=== PATIENT | male | born 1970 | race Caucasian/White ===

== ENCOUNTER 2021-12-06 12:41 | Emergency (ER) | payer MEDICAID, SELFPAY ==
[2021-12-06 12:42] VITALS: BP 136/100; PULSE 137; RESP 22; TEMP 37.2; O2SAT 96; BMI 34.4
--- NOTE | 2021-12-06 13:05 | ECG_ITS ---
APPROVED REPORT Exam: Resting ECG HR:126 bpm ECG Measurements Heart Rate [address] 161 P 25 QRSd 89 QRS 56 QT 297 T 48 QTc 372 Conclusion SINUS TACHYCARDIA ABNORMAL RHYTHM ECG UNCONFIRMED REPORT Electronically signed by : Berny Reyna MD 12/07/2021 15:03:33
--- NOTE | 2021-12-06 13:07 | PC.NURSE ---
ED MD at bedside
[2021-12-06 13:09] VITALS: BP 153/95; PULSE 134; RESP 16; O2SAT 98
--- NOTE | 2021-12-06 13:10 | XR_ITS ---
FINAL REPORT CLINICAL HISTORY: cough, elevated heart rate FINDINGS: A single portable view of the chest was obtained. The heart size and pulmonary vascularity are within normal limits. The mediastinum is within normal limits. No acute pulmonary abnormality is identified. The bony thorax is intact. IMPRESSION: No active cardiopulmonary disease. Reviewed, Interpreted and Dictated by Magdiel Pulido III, MD Transcribed by Cara Barba Authenticated by Magdiel Pulido III, MD on 12/06/2021 02:05:51 PM [facility]
[2021-12-06 13:23] LABS: Basophils # 0.1 K/mm3 (0-0.2); Eosinophils # 0.2 K/mm3 (0.0-0.4)
[2021-12-06 13:30] VITALS: BP 138/96; PULSE 118; RESP 20; O2SAT 95
[2021-12-06 13:33] LABS: Chloride 99 mmol/L (98-107); Potassium 4.4 mmoL/L (3.5-5.1); Sodium 134 mmol/L (136-145)
[2021-12-06 13:35] LABS: Blood Urea Nitrogen 16 mg/dl (9-20); Creatinine Clearance Estimated 158 mL/min (50-200); Estimated Glomerular Filt Rate 103 ml/min (>60); GFR (African American) 124 ML/MIN (>60)
[2021-12-06 13:36] LABS: Alanine Aminotransferase 95 U/L (12-78); Albumin Level 5.2 g/dl (3.5-5.0); Albumin/Globulin Ratio 1.3 (1.1-1.8); Alkaline Phosphatase 158 U/L (38-126); Anion Gap 18.4 mEq/L (5-15); Aspartate Amino Transferase 75 U/L (17-59); Bilirubin,Total 1.1 mg/dl (0.2-1.3); Calcium 8.9 mg/dl (8.4-10.2); Carbon Dioxide 21 mmol/L (22.0-30.0); Globulin 3.9 g/dL (1.3-3.2); Glucose 178 mg/dl (74-100); Lipase 100 U/L (23-300); Total Protein,Serum 9.1 g/dl (6.3-8.2)
[2021-12-06 13:58] LABS: Troponin I < 0.01 ng/ml (0.00-0.034)
[2021-12-06 14:00] VITALS: BP 129/83; PULSE 123; RESP 18; O2SAT 95
--- NOTE | 2021-12-06 14:00 | PC.NURSE ---
Lab called for delay on CBC result; spoke with Danette, CBC is still running
[2021-12-06 14:11] LABS: Basophils % 0.9 % (0.1-2.0); Eosinophils % 1.8 % (0.1-12.0); Hematocrit 57.7 % (42.0-52.0); Lymphocytes # 0.5 K/mm3 (0.7-4.5); Lymphocytes % 5.9 % (10-50); Mean Corpuscular HGB Conc 32.4 g/dL (31.8-35.4); Mean Corpuscular Hemoglobin 30.1 pg (27.0-31.2); Mean Corpuscular Volume 92.9 fl (80-94); Mean Platelet Volume 10.1 fl (7.4-10.4); Monocytes # 0.3 K/mm3 (0.1-1.0); Monocytes % 3.3 % (1.7-9.3); Neutrophils # 7.8 K/mm3 (1.8-7.8); Platelet Count 149 K/mm3 (142-424); Red Blood Count 6.21 M/mm3 (4.60-6.20); Red Cell Distribution Width 15.4 % (11.5-17.5); White Blood Count 8.8 K/mm3 (4.8-10.8)
[2021-12-06 14:13] LABS: MANUAL DIFFERENTIAL MANUAL DIFFERENTIAL (MANUAL DIFF)
--- NOTE | 2021-12-06 14:23 | CT_ITS ---
FINAL REPORT CLINICAL HISTORY: diarrhea FINDINGS: Axial CT images of the abdomen and pelvis were obtained without intravenous contrast. Coronal reformatted images were also obtained.This study was performed with techniques to keep radiation doses as low as reasonably achievable (ALARA). Individualized dose reduction techniques using automated exposure control or adjustment of mA and/or kV according to the patient's size were employed. Abdomen: The lung bases are clear. There is no evidence of renal stone or hydronephrosis. The gallbladder is surgically absent. The liver is heterogeneous in appearance with fatty infiltration. It is uncertain if other areas represent sparing of fatty infiltration or underlying masses. The spleen and pancreas have an unremarkable, unenhanced appearance. No inflammatory process is identified. There are mild vascular calcifications. Pelvis: The appendix is normal. There is no evidence of ureteral dilation or ureteral stone. Fluid is seen in multiple large and small bowel loops that may represent enteritis. There is descending and sigmoid diverticulosis. There is wall thickening of the sigmoid colon which may represent muscular hypertrophy or colitis, neoplasm is felt less likely. There is stranding adjacent to the posterior aspect of the sigmoid colon which is worrisome for mild acute diverticulitis or sequela of prior diverticulitis. There are small inguinal hernias containing fat. IMPRESSION: Fluid-filled bowel loops worrisome for enteritis. Sigmoid colon wall thickening which may represent muscular hypertrophy or colitis/diverticulitis, neoplasm felt less likely. Abnormal appearance of the liver, may represent fatty infiltration with areas of sparing but underlying masses are not excluded. Liver MRI without and with contrast may be helpful for further evaluation. Reviewed, Interpreted and Dictated by Magdiel Pulido III, MD Transcribed by Xin Jose Authenticated by Magdiel Pulido III, MD on 12/06/2021 04:06:21 PM [facility][1]
--- NOTE | 2021-12-06 14:24 | HMH.EDGENADL ---
ED Disposition Clinical Impression: Gastroenteritis Disposition: Home, Self-Care Condition on Discharge: Good Instructions: DI for Viral Gastroenteritis -- Adult Prescriptions: Dicyclomine HCl [Bentyl 10mg capsule] 10 mg PO QID #28 cap Transmission Status: Pending to [facility] Ondansetron [Zofran 4mg ODT] 4 mg PO BIDP PRN #10 tab PRN Reason: Nausea Transmission Status: Pending to [facility] Referrals: Provider,MD Eloisa [Primary Care Provider] - Roosevelt Garay MD [Staff Physician] - - Critical Care Critical Care Time: No Attestation: On 12/06/21, the high probability of a clinically significant, sudden or life threatening deterioration of the following system(s) required my full and direct attention, intervention and personal management. The time I documented below is in addition to time spent performing reported procedures but includes the following listed in this critical care notation. Medical Decision Making - Medical Records Medical records reviewed: Yes: I reviewed the patient's medical records. - Richard Inquiry Pt receiving controlled substance: No Vital Signs: 12/06/21 12:42 12/06/21 13:09 12/06/21 13:30 Temperature 98.9 F Temperature Source Oral Pulse Rate 134 H 118 H Pulse Rate [Radial] 137 H Respiratory Rate 22 16 20 Blood Pressure 153/95 H 138/96 H Blood Pressure [Right Arm] 136/100 H Blood Pressure Mean 117 105 Blood Pressure Mean [Right Arm] 112 Blood Pressure Position [Right Arm] Sitting 02 Sat by Pulse Oximetry 96 98 95 Oxygen Delivery Method Room Air 12/06/21 14:00 12/06/21 15:00 Temperature Temperature Source Pulse Rate 123 H 122 H Pulse Rate [Radial] Respiratory Rate 18 18 Blood Pressure 129/83 138/90 Blood Pressure [Right Arm] Blood Pressure Mean 98 100 Blood Pressure Mean [Right Arm] Blood Pressure Position [Right Arm] 02 Sat by Pulse Oximetry 95 97 Oxygen Delivery Method - Lab Data Lab Results 12/06/21 13:08: WBC 8.8, RBC 6.21 H, Hgb 18.7 H, Hct 57.7 H, MCV 92.9, MCH 30.1, MCHC 32.4, RDW 15.4, Plt Count 149, MPV 10.1, Neut % (Auto) 88.0 H, Lymph % (Auto) 5.9 L, [place] % (Auto) 3.3, Eos % (Auto) 1.8, Baso % (Auto) 0.9, Neut # (Auto) 7.8, Lymph # (Auto) 0.5 L, [place] # (Auto) 0.3, Eos # (Auto) 0.2, Baso # (Auto) 0.1, Total Counted 100, Neutrophils % (Manual) 86 H, Lymphocytes % (Manual) 7 L, Monocytes % (Manual) 4, Eosinophils % (Manual) 2, Basophils % (Manual) 1.0, Platelet Estimate Normal, RBC Morphology Normal 12/06/21 13:08: Sodium 134 L, Potassium 4.4, Chloride 99, Carbon Dioxide 21 L, Anion Gap 18.4 H, BUN 16, Creatinine 0.80, Estimated Creat Clear 158, Estimated GFR 103, Est GFR ( Amer) 124, Glucose 178 H, Calcium 8.9, Total Bilirubin 1.1, AST 75 H, ALT 95 H, Alkaline Phosphatase 158 H, Troponin I < 0.01, Total Protein 9.1 H, Albumin 5.2 H, Globulin 3.9 H, Albumin/Globulin Ratio 1.3, Lipase 100 12/06/21 13:10: Acetone Level None detected 12/06/21 14:30: Lactate 1.9 Result diagrams: 12/06/21 13:08 12/06/21 13:08 Orders (Tests/Meds): ED MEDICATIONS Discontinued Medications Generic Name Dose Route Start Last Admin Trade Name Freq PRN Reason Stop Dose Admin Sodium Chloride 1,000 mls @ 999 mls/hr 12/06/21 13:15 12/06/21 13:22 Sod Chlor 0.9% 1000ml Bag IV 12/06/21 14:15 999 mls/hr .Q1H1M BETH Administration Sodium Chloride 1,000 mls @ 999 mls/hr 12/06/21 14:45 12/06/21 14:54 Sod Chlor 0.9% 1000ml Bag IV 12/06/21 15:45 999 mls/hr .Q1H1M BETH Administration Ondansetron HCl 4 mg 12/06/21 13:10 12/06/21 13:23 Ondansetron 4mg/2ml Vial IV 12/06/21 13:11 4 mg ONCE ONE Administration ORDERS Category Date Time Status Troponin I Q3H Lab 12/06/21 16:15 Ordered Troponin I Q3H Lab 12/06/21 19:15 Ordered Urinalysis and Microscopic Stat Lab 12/06/21 14:23 Ordered - Radiology Data #1 Image(s): Chest Image Reviewed: Yes I reviewed the mayur
[2021-12-06 14:35] LABS: Eosinophils % 2 % (0-3); Lymphocytes % 7 % (10-50); Monocytes % 4 % (2-9); Neutrophils % 86 % (42-76); Platelet Estimate Normal; RBC Morphology Normal; Total Cells Counted 100
--- NOTE | 2021-12-06 14:35 | PC.NURSE ---
pt in room updated on plan of care
[2021-12-06 14:52] LABS: Acetone, Serum (Rapid) None Detected (None Detect)
[2021-12-06 14:54] LABS: Lactic Acid 1.9 mmol/L (0.7-2.1)
[2021-12-06 14:58] LABS: Hemoglobin 18.7 g/dL (14.1-18.0)
[2021-12-06 15:00] VITALS: BP 138/90; PULSE 122; RESP 18; O2SAT 97
[2021-12-06 16:49] VITALS: BP 125/74; PULSE 88; RESP 16; TEMP 36.6; O2SAT 96
== END 2021-12-06 16:51 | disposition home or self-care (01) ==
PROVIDERS: Emergency Provider Emergency Medicine
DX: I49.9 Cardiac arrhythmia, unspecified; K76.0 Fatty (change of) liver, not elsewhere classified; R11.10 Vomiting, unspecified; F17.200 Nicotine dependence, unspecified, uncomplicated; Z79.899 Other long term (current) drug therapy; Z88.0 Allergy status to penicillin
CPT/HCPCS: 71045; 74176; 80053; 82009; 83605; 83690; 84484; 85007; 85025; 93005; 96361; 96365; 96367; 96374; 96375; 99285; J2405

== ENCOUNTER → 2023-01-06 06:49 | Outpatient (CLI) | payer BC, SELFPAY ==
--- NOTE | 2023-01-06 06:55 | CT_ITS ---
FINAL REPORT CLINICAL HISTORY: HISTORY OF NICOTINE DEPENDENCE current smoker 2ppd x35 years FINDINGS: Low-Dose Chest CT Axial images were obtained from the lung apex to the mid abdomen by computed tomography. Low-dose protocol was utilized. CTDI vol (mGy): 2.90 DLP (mGy-cm): 98.21 There is no axillary adenopathy. There is no hilar adenopathy. There are multiple calcified mediastinal lymph nodes. The heart is proper size. There is no pericardial or pleural effusion. Lung window images demonstrate mild changes of emphysema. There are several bilateral pulmonary nodules. The largest nodule is in the lingula measuring 7 mm, seen on image 57. There are several other smaller bilateral pulmonary nodules. Limited images of the upper abdomen demonstrate postoperative changes from cholecystectomy. IMPRESSION: 7 mm pulmonary nodule in the lingula. Several other smaller bilateral pulmonary nodules. Lung RADS category 3. Recommend 6 month follow-up low-dose chest CT. Reviewed, Interpreted and Dictated by Magdiel Pulido III, MD Transcribed by Xin Jose Authenticated and [facility]
--- NOTE | 2023-01-06 13:35 | PC.NURSE ---
Spoke with patient today about a home sleep study. He would like to hold off at this timje. States he is doing better.
== END ==
PROVIDERS: Referring Provider Family Medicine; Visit Provider Family Medicine
DX: Z87.891 Personal history of nicotine dependence (principal); Z12.2 Encounter for screening for malignant neoplasm of respiratory organs
CPT/HCPCS: 71271

== ENCOUNTER 2023-03-18 06:23 | Day surgery (SDC) | payer BC, SELFPAY ==
[2023-03-17 10:11] VITALS: BMI 32.1
[2023-03-18 06:38] VITALS: BP 121/74; PULSE 83; RESP 18; TEMP 36.2; O2SAT 95
[2023-03-18 06:54] LABS: POC Glucose,Bedside 117 (70-110)
--- NOTE | 2023-03-18 07:15 | HMH.SCOPE ---
Procedure: Date: 03/18/23 Patient Date of :: 1970 Procedure Performed:: Limited flexible sigmoidoscopy Indications:: Screening Performing Provider:: Enrique Hidalgo MD Referring Provider:: . Sedation:: Monitored anesthesia care Procedure:: After informed consent was obtained the patient was taken to the endoscopy suite. Sedation ensued after the patient was transferred to the left lateral decubitus position. Pulse, blood pressure, and oxygen saturation were monitored throughout the procedure. Digital rectal exam revealed no significant abnormality. The colonoscope was placed in position. The entire colon was evaluated. The colonoscope was carefully removed and the patient was transferred to recovery in stable condition. Please see findings and specimens below for detail. Findings:: Patchy focal colitis and mucosal thickening No definitive mass lesion; however, mucosal thickening and soft tissue edema in sigmoid colon created partial stricture and inability to safely pass the colonoscope Hemorrhoidal tag/cushions Specimens:: None Recommendations:: Barium enema ordered CT of abdomen pelvis with contrast ordered CBC/BMP ordered Complications:: Limited flexible sigmoidoscopy completed secondary to above-stated findings Estimated blood obtained (mL): 0 Colonoscopy Component Colonoscopy Component Was a colonoscopy performed during today's procedure?: Yes Recommended follow up colonoscopy of at least 10 years?: No If no, follow up colonoscopy recommended in ___ years?: Soon as possible after CT and barium enema Reason for not recommending >/= 10 yr follow-up interval?: Colonoscopy incomplete secondary to focal colitis and possible sigmoid stricture
[2023-03-18 07:18] VITALS: O2SAT 95
--- NOTE | 2023-03-18 07:39 | EXP.ANES.CKL ---
[facility] Disclaimer: The information contained in this section may have been updated after the patient was seen, as this information can be updated by other users. Medical History Diabetes mellitus, type 2 Hyperlipidemia Irritable bowel syndrome (IBS) Kidney stone Surgical History History of knee replacement Family History Other Family history of COPD (chronic obstructive pulmonary disease) Family history of cardiomyopathy Family history of hypothyroidism Social History (Updated 03/18/23 @ 06:45 by La Gamboa RN) Smoking Status: Current every day smoker tobacco type: cigarettes packs per day: 2 years smoked: 35 alcohol intake: never substance use type: denies use current occupational status: employed Travel in the last 8 weeks: None household members: family housing: house caffeine: Yes [facility] Anesthesia Checklist Patient Identification Patient Identification: Arm Band Structural Data Admitted From: Home Planned Operative Procedure/s: colonoscopy Consent for Planned Operative Procedure(s) Verified: Yes Verified Documents: Surgical Consent and History and Physical NPO Status Verified Time NPO: 00:00 Additional verifications Anesthesia Reactions: No Airway Assessment C-Spine Mobility Assessed: Yes TMJ Mobility Assessed: Yes Dentition: Edentulous Neurological Assessment Level of Consciousness: Awake and Alert Anesthesia Plan Anesthesia Risk discussed: Yes Anesthesia Plan: Verified ASA Class: II Anesthesia Type: MAC
--- NOTE | 2023-03-18 07:50 | FL_ITS ---
FINAL REPORT CLINICAL HISTORY: focal colitis in sigmoid with possible stricture 1.54 fluoro time with gastro FINDINGS: GASTROGRAFIN ENEMA HISTORY: Incomplete colonoscopy. Focal colitis PROCEDURE: Single-contrast Gastrografin was introduced by gravity drip. Spot and overhead films were obtained. FINDINGS: Preliminary pet training instructor film is unremarkable. Examination is limited secondary to patient's inability to tolerate rectal contrast. There is a stricture of the mid sigmoid colon compatible with an apple core lesion and underlying mass. A second stricture is identified at the junction of the descending colon and sigmoid colon which may be secondary to nondistention. However, a second underlying mass is not excluded. The more proximal colon is poorly evaluated on this exam. IMPRESSION: Apple core lesion of the mid sigmoid colon highly worrisome for underlying mass. Second lesion at the junction of the descending colon and sigmoid colon may also represent an underlying mass. Endoscopic correlation recommended. FLUOROSCOPY TIME: 1 minute 54 seconds 12 radiographs were obtained. Films reviewed , interpreted and dictated by Dr. Sanford. Transcribed by Eddie Peterson PA-C. Reviewed, Interpreted and Dictated by Wallace Sanford MD Transcribed by CHAVO Griffin Authenticated and [facility]
--- NOTE | 2023-03-18 07:51 | CT_ITS ---
FINAL REPORT TECHNIQUE: Postcontrast axial images through the abdomen and pelvis were performed. This study was performed with techniques to keep radiation doses as low as reasonably achievable, (ALARA). Individualized dose reduction techniques using automated exposure control or adjustment of mA and/or kV according to the patient's size were employed. CLINICAL HISTORY: Focal sigmoid colitis with possible stricture BE was also done this morning FINDINGS: Abdomen: The lung bases are clear. The liver is normal in size and attenuation. The gallbladder is surgically absent. The spleen is unremarkable. The adrenals are normal. The pancreas is unremarkable. The kidneys enhance appropriately. The aorta is normal in caliber. Contrast is noted in the colon. There appears to be a mass at the junction of the descending and sigmoid colon. Mass measuring approximately 5.6 cm in length and 4.2 cm in diameter. Proximal to the mass is mucosal prominence of uncertain significance best seen on image 97 of series 2. There may be a few small pericolonic lymph nodes with the largest measuring up to 7 mm concerning for regional metastatic adenopathy. Pelvis: The appendix is normal. The urinary bladder is unremarkable. No free fluid, free air, abscess or adenopathy is identified. IMPRESSION: Sigmoid colon mass with questionable regional metastatic adenopathy. Reviewed, Interpreted and Dictated by Wallace Sanford MD Transcribed by Riley Parr Authenticated and [facility]
[2023-03-18 07:55] VITALS: BP 144/104; PULSE 79; RESP 16; TEMP 36.6; O2SAT 95
[2023-03-18 08:05] VITALS: BP 118/77; PULSE 71; RESP 17; O2SAT 94
[2023-03-18 08:15] VITALS: BP 110/81; PULSE 66; RESP 17; O2SAT 98
[2023-03-18 08:22] LABS: Basophils % 0.6 % (0.1-2.0); Eosinophils # 0.5 K/mm3 (0.0-0.4); Eosinophils % 7.5 % (0.1-12.0); Hematocrit 46.6 % (42.0-52.0); Hemoglobin 15.3 g/dL (14.1-18.0); Lymphocytes # 1.4 K/mm3 (0.7-4.5); Lymphocytes % 21.6 % (10-50); Mean Corpuscular HGB Conc 32.7 g/dL (31.8-35.4); Mean Corpuscular Hemoglobin 28.4 pg (27.0-31.2); Mean Corpuscular Volume 86.6 fl (80-94); Mean Platelet Volume 9.6 fl (7.4-10.4); Monocytes # 0.3 K/mm3 (0.1-1.0); Monocytes % 4.3 % (1.7-9.3); Neutrophils # 4.3 K/mm3 (1.8-7.8); Platelet Count 132 K/mm3 (142-424); Red Blood Count 5.38 M/mm3 (4.60-6.20); Red Cell Distribution Width 15.7 % (11.5-17.5); White Blood Count 6.5 K/mm3 (4.8-10.8)
[2023-03-18 08:23] LABS: Chloride 99 mmol/L (98-107)
[2023-03-18 08:24] LABS: Potassium 3.7 mmoL/L (3.5-5.1); Sodium 140 mmol/L (136-145)
[2023-03-18 08:27] LABS: Anion Gap 13.7 mEq/L (5-15); Blood Urea Nitrogen 10 mg/dl (9-20); Calcium 8.8 mg/dl (8.4-10.2); Carbon Dioxide 31 mmol/L (22.0-30.0); Creatinine Clearance Estimated 145 mL/min (50-200); Estimated Glomerular Filt Rate 102 ml/min (>60); GFR (African American) 124 ML/MIN (>60); Glucose 122 mg/dl (74-100)
--- NOTE | 2023-03-18 09:13 | SUR.PHASEII ---
0811-Lab @ bedside 0836-Rad here to take pt to radiology suite
[2023-03-18 09:30] VITALS: BP 127/73; PULSE 78; RESP 17; O2SAT 98
== END 2023-03-18 09:30 | disposition home or self-care (01) ==
PROVIDERS: PCP Family Medicine; Visit Provider Surgery
PROC: 0DJD8ZZ Inspection of Lower Intestinal Tract, Via Natural or Artificial Opening Endoscopic (ICD-10-PCS; CPT 45330; principal; 2023-03-18 07:30)
DX: Z12.11 Encounter for screening for malignant neoplasm of colon (principal); K52.89 Other specified noninfective gastroenteritis and colitis; K63.89 Other specified diseases of intestine; K64.4 Residual hemorrhoidal skin tags; E11.9 Type 2 diabetes mellitus without complications
CPT/HCPCS: 45378; 36415; 74177; 74270; 80048; 82962; 85025; J2704; Q9967

== ENCOUNTER → 2023-04-30 10:06 | Outpatient (CLI) | payer BC, SELFPAY ==
--- NOTE | 2023-04-30 10:17 | ECG_ITS ---
APPROVED REPORT Exam: Resting ECG HR:76 bpm ECG Measurements Heart Rate 76 AXES IL 164 P -1 QRSd 97 QRS 43 QT 359 T 38 QTc 390 Conclusion SINUS RHYTHM NORMAL ECG UNCONFIRMED REPORT Electronically signed by : Berny Reyna MD 04/30/2023 20:16:13
[2023-04-30 10:49] LABS: Basophils # 0.1 K/mm3 (0-0.2); Basophils % 0.9 % (0.1-2.0); Eosinophils # 0.4 K/mm3 (0.0-0.4); Eosinophils % 4.9 % (0.1-12.0); Hematocrit 50.8 % (42.0-52.0); Hemoglobin 16.4 g/dL (14.1-18.0); Lymphocytes % 24.1 % (10-50); Mean Corpuscular HGB Conc 32.3 g/dL (31.8-35.4); Mean Corpuscular Hemoglobin 28.2 pg (27.0-31.2); Mean Corpuscular Volume 87.2 fl (80-94); Mean Platelet Volume 10.2 fl (7.4-10.4); Monocytes # 0.3 K/mm3 (0.1-1.0); Monocytes % 3.5 % (1.7-9.3); Neutrophils # 5.4 K/mm3 (1.8-7.8); Neutrophils % 66.5 % (37.0-80.0); Platelet Count 146 K/mm3 (142-424); Red Blood Count 5.82 M/mm3 (4.60-6.20); Red Cell Distribution Width 15.7 % (11.5-17.5); White Blood Count 8.1 K/mm3 (4.8-10.8)
[2023-04-30 12:00] LABS: Chloride 104 mmol/L (98-107); Potassium 4.4 mmoL/L (3.5-5.1); Sodium 141 mmol/L (136-145)
[2023-04-30 12:02] LABS: Blood Urea Nitrogen 13 mg/dl (9-20); Estimated Glomerular Filt Rate 119 ml/min (>60); GFR (African American) 144 ML/MIN (>60)
[2023-04-30 12:03] LABS: Alanine Aminotransferase 68 U/L (12-78); Albumin Level 5.1 g/dl (3.5-5.0); Albumin/Globulin Ratio 1.6 (1.1-1.8); Alkaline Phosphatase 250 U/L (38-126); Anion Gap 14.4 mEq/L (5-15); Aspartate Amino Transferase 52 U/L (17-59); Bilirubin,Total 0.5 mg/dl (0.2-1.3); Calcium 10.3 mg/dl (8.4-10.2); Carbon Dioxide 27 mmol/L (22.0-30.0); Globulin 3.1 g/dL (1.3-3.2); Glucose 119 mg/dl (74-100); Total Protein,Serum 8.2 g/dl (6.3-8.2)
== END ==
PROVIDERS: PCP Family Medicine; Visit Provider Surgery
DX: Z01.818 Encounter for other preprocedural examination (principal); K52.9 Noninfective gastroenteritis and colitis, unspecified
CPT/HCPCS: 36415; 80053; 85025; 93005

== ENCOUNTER 2023-05-01 06:02 | Day surgery (SDC) | payer BC, SELFPAY ==
[2023-04-28 10:16] VITALS: BMI 31.0
[2023-05-01] VITALS (16 sets, daily range): BP systolic 121–183; BP diastolic 71–110; PULSE 89–100; RESP 10–23; TEMP 36.8–43; O2SAT 92–99
[2023-05-01 06:50] LABS: POC Glucose,Bedside 124 (70-110)
[2023-05-01 06:51] LABS: INR 1.09 (0.9-1.1); Prothrombin Time 11.7 seconds (10.1-12.5)
--- NOTE | 2023-05-01 07:06 | P.PNANES_ITS ---
[facility] Disclaimer: The information contained in this section may have been updated after the patient was seen, as this information can be updated by other users. Medical History Allergies Diabetes mellitus, type 2 Hyperlipidemia Irritable bowel syndrome (IBS) Kidney stone Surgical History History of cholecystectomy History of knee replacement History of mandibular surgery Family History Other Family history of COPD (chronic obstructive pulmonary disease) Family history of cardiomyopathy Family history of hypothyroidism Social History Smoking Status: Current every day smoker tobacco type: cigarettes packs per day: 2 years smoked: 35 alcohol intake: never substance use type: denies use current occupational status: employed Travel in the last 8 weeks: None household members: family housing: house caffeine: Yes [facility] Anesthesia Checklist Patient Identification Patient Identification: Arm Band and Family Structural Data Admitted From: Home Planned Operative Procedure/s: Exploratory Laparoscopy. Signoid resection, low Anterior resection. Consent for Planned Operative Procedure(s) Verified: Yes Verified Documents: Surgical Consent and History and Physical NPO Status Verified Time NPO: 00:00 Additional verifications Patient : No Anesthesia Reactions: No Hx Blood Transfusions: No Blood Transfusion Reaction: No Cephalosporin Allergy: Yes Previous Colonoscopy: Yes Airway Assessment Mallampati Score:: Class II C-Spine Mobility Assessed: Yes TMJ Mobility Assessed: Yes Dentition: Poor Dentition Neurological Assessment Level of Consciousness: Awake, Alert, Appropriate and Follows Commands Hx Seizures: No Numbness or tingling in extremities: No Anesthesia Plan Anesthesia Risk discussed: Yes ASA Class: II Anesthesia Type: General Preoperative Comments Pre-Operative Comments: Intestinal mass.
--- NOTE | 2023-05-01 11:06 | P.PNANES_ITS ---
[facility] Anesthesia Record Part I Anesthesia Record I Intake, IV Amount: 1,000 Estimated blood loss (mL): 200 Urine output (mL): 150 Blood Products used (#): none Blood Pressure: 174/100 SaO2: 96 Pulse Rate: 95 Respiratory Rate: 16 Temperature: 98.6 F Patient is:: Drowsy and Stable Stable to PACU at:: 10:50
--- NOTE | 2023-05-01 11:34 | EXP.OP.NOTE ---
Date of procedure: 05/01/23 Pre-op Diagnosis:: Sigmoid mass lesion Post-op Diagnosis:: Same Procedure performed:: Sigmoid resection Surgeon:: Enrique Hidalgo MD Pyrometer Temperature Regulator(s):: Magdiel Cordoba MD Anesthesia: GETA Estimated blood loss (mL): 200 Clinical Note:: This is a 53-year-old gentleman who recently underwent colonoscopy with follow-up CT scan/gastrografin enema. Findings are forwarded below. Follow-up gastrografin enema and CT scan both show changes consistent with likely sigmoid neoplasm.? The mass lesion with likely friable mucosa was not visualized secondary to soft tissue/mucosal edema distal to the lesion.? Findings:: Patchy focal colitis and mucosal thickening No definitive mass lesion; however, mucosal thickening and soft tissue edema in sigmoid colon created partial stricture and inability to safely pass the colonoscope Hemorrhoidal tag/cushions He now presents for sigmoid resection. Operative findings:: Firm fixed mass lesion encroaching the dome of the bladder. Distal ureteral transection (secondary to encroachment from mass lesion) Operative note:: After informed consent was obtained the patient was taken to the operating room and placed in the supine position. General anesthesia was induced and his abdomen was prepped and draped in a sterile fashion. A midline laparotomy incision was made. The abdomen was entered just below the umbilicus. Palpation confirmed a fixed mass sigmoid lesion. The Bookwalter retractor was placed in position. After appropriate retraction of the small bowel the left colon/sigmoid colon was carefully elevated. Dissection along the white line was initially accomplished with a combination of sharp dissection and electrocautery. The sigmoid mass lesion was carefully elevated. The firm fixed mass lesion encroached the dome of the bladder. Careful dissection with Metzenbaum scissors and electrocautery was utilized to free the mass lesion. A small cuff of bladder dome was resected with the specimen. The proximal colonic margin was then taken with the linear stapling device and the distal margin was taken with the Ethicon Contour stapler. The intervening mesentery was transected with the Enseal device. A combination of silk sutures and clips were also utilized to achieve hemostasis. The specimen was marked for distal margin and passed off for pathologic evaluation. The defect in the bladder dome was reapproximated in 2 layers utilizing running/locking chromic suture and non-dyed 2-0 running Vicryl. The abdominal cavity was thoroughly irrigated. Thorough reinspection revealed a distal ureteral transection (mass encroachment obviously included distal ureter in addition to what was initially felt to be simply bladder dome involvement). Tissue adjacent to the ureteral margin was marked with Prolene suture. A #10 flat Andrew-Cuello drain was placed in the pelvis. Fascia was reapproximated with running looped 0 PDS. Skin was then stapled and dressings were applied. Arrangements were made for immediate transfer to the [facility] for repair of his urologic injury and for completion of the colorectal procedure. Condition: stable Disposition: PACU Specimens:: Sigmoid colon Complications:: Distal ureteral injury secondary to mass encroachment.
[2023-05-01 11:52] LABS: POC Glucose,Bedside 213 (70-110)
--- NOTE | 2023-05-01 12:45 | SUR.PHASEI ---
1150- Report given to kierra Red at surgery ICU. Pt will be transporting to [facility]. 1240- [facility] at bedside to transfer pt. Report given. Pt VSS, dressings CDI.
[2023-05-01 15:22] LABS: Microscopic,Cath URINE MICROSCOPIC (MICROSCOPIC)
[2023-05-01 15:27] LABS: Appearance,Urine/Cath Cloudy (Clear); Bilirubin,Cath 1+ (Negative); Blood, Urine/Cath 3+ (Negative); Color,Urine/Cath YELLOW (Yellow); Glucose,Urine/Cath (UA) Negative (Negative); Ketones,Urine/Cath TRACE (Negative); Leukocyte Esterase,Cath TRACE (Negative); Nitrate,Cath POSITIVE (Negative); PH,Urine/Cath 5.5 (5.0-8.5); Protein,Urine/Cath 2+ (Negative); Specific Gravity, Urine/Cath >= 1.030 (1.005-1.030)
[2023-05-01 16:21] LABS: Bacteria,Urine/Cath TRACE /lpf; RBC,Urine/Cath 20-50 # /hpf (0-3)
--- NOTE | 2023-05-02 06:54 | EXP.ANES.CKL ---
[facility] Disclaimer: The information contained in this section may have been updated after the patient was seen, as this information can be updated by other users. Medical History Allergies Diabetes mellitus, type 2 Hyperlipidemia Irritable bowel syndrome (IBS) Kidney stone Surgical History History of cholecystectomy History of knee replacement History of mandibular surgery Family History Other Family history of COPD (chronic obstructive pulmonary disease) Family history of cardiomyopathy Family history of hypothyroidism Social History Smoking Status: Current every day smoker tobacco type: cigarettes packs per day: 2 years smoked: 35 alcohol intake: never substance use type: denies use current occupational status: employed Travel in the last 8 weeks: None household members: family housing: house caffeine: Yes [facility] Anesthesia Checklist Patient Identification Patient Identification: Arm Band Structural Data Admitted From: Home Planned Operative Procedure/s: I and D Leg Consent for Planned Operative Procedure(s) Verified: Yes Verified Documents: Surgical Consent and History and Physical NPO Status Verified Time NPO: 00:00 Additional verifications Patient : No Anesthesia Reactions: No Hx Blood Transfusions: No Blood Transfusion Reaction: No Cephalosporin Allergy: No Previous Colonoscopy: Yes Airway Assessment C-Spine Mobility Assessed: Yes TMJ Mobility Assessed: Yes Dentition: Good Dentition Neurological Assessment Level of Consciousness: Awake, Alert, Appropriate and Follows Commands Anesthesia Plan Anesthesia Risk discussed: Yes ASA Class: II Anesthesia Type: General
[2023-05-02 08:19] LABS: CEA 2.1 ng/mL (0.0-4.7)
--- NOTE | 2023-05-02 09:32 | P.PNANES_ITS ---
[facility] Anesthesia Record Part II Anesthesia Record Part II Discharge Time: 12:40 Destination: Unknown PACU nurse assessment reviewed?: Yes Patient Condition:: Good Anesthesia Complications:: None Swallowing reflex intact?: Yes Cyanosis?: No Blood Pressure: 130/85 Pulse Rate: 96 Temperature: 98.6 F Mental Status: Alert & Oriented Pain level:: 0 Nausea and/or vomitting:: None Intake, IV Amount: 0 Comments:: Pt transferred to
[2023-05-02 09:36] VITALS: BP 130/85; PULSE 96; TEMP 37
== END 2023-05-01 12:45 | disposition short-term general hospital (02) ==
PROVIDERS: PCP Family Medicine; Visit Provider Surgery
PROC: (CPT 49000; principal; 2023-05-01 07:30)
DX: K57.20 Diverticulitis of large intestine with perforation and abscess without bleeding (principal); S37.19XA Other injury of ureter, initial encounter
CPT/HCPCS: 44140; 81001; 82378; 82962; 85610; 86850; 96374; J1335

== ENCOUNTER → 2023-05-28 13:05 | Outpatient (CLI) | payer BC, SELFPAY ==
[2023-05-28 13:12] VITALS: BMI 26.6
[2023-05-28 13:28] LABS: Basophils # 0.1 K/mm3 (0-0.2); Basophils % 0.6 % (0.1-2.0); Eosinophils # 0.4 K/mm3 (0.0-0.4); Eosinophils % 3.9 % (0.1-12.0); Hematocrit 35.7 % (42.0-52.0); Hemoglobin 11.8 g/dL (14.1-18.0); Lymphocytes # 3.1 K/mm3 (0.7-4.5); Lymphocytes % 28.8 % (10-50); Mean Corpuscular Volume 84.9 fl (80-94); Mean Platelet Volume 7.6 fl (7.4-10.4); Monocytes # 0.4 K/mm3 (0.1-1.0); Monocytes % 4.1 % (1.7-9.3); Neutrophils # 6.8 K/mm3 (1.8-7.8); Neutrophils % 62.6 % (37.0-80.0); Platelet Count 378 K/mm3 (142-424); Red Blood Count 4.21 M/mm3 (4.60-6.20); Red Cell Distribution Width 15.9 % (11.5-17.5); White Blood Count 10.8 K/mm3 (4.8-10.8)
[2023-05-28 13:44] LABS: Blood Urea Nitrogen 20 mg/dl (9-20); Creatinine Clearance Estimated 106 mL/min (50-200); Estimated Glomerular Filt Rate 89 ml/min (>60); GFR (African American) 108 ML/MIN (>60)
[2023-05-28 13:45] LABS: Alanine Aminotransferase 86 U/L (12-78); Albumin Level 4.7 g/dl (3.5-5.0); Alkaline Phosphatase 378 U/L (38-126); Aspartate Amino Transferase 39 U/L (17-59); Bilirubin,Total 0.4 mg/dl (0.2-1.3); Total Protein,Serum 8.8 g/dl (6.3-8.2)
[2023-05-28 16:16] LABS: Bilirubin,Unconjugated 0.4 mg/dL (0.0-1.1)
[2023-05-28 16:18] LABS: Bilirubin,Indirect 0.2 mg/dL (0.0-0.9)
[2023-05-29 16:06] LABS: C-Reactive Protein 4.6 mg/L (0-4)
== END ==
PROVIDERS: PCP Family Medicine; Visit Provider Orthopaedic Surgery Orthopaedic Surgery of the Spine
DX: A41.9 Sepsis, unspecified organism (principal); R65.21 Severe sepsis with septic shock; Z45.2 Encounter for adjustment and management of vascular access device
CPT/HCPCS: 36592; 80076; 82565; 84520; 85025; 86140

== ENCOUNTER 2023-06-03 12:59 | Outpatient (CLI) | payer BC, SELFPAY ==
[2023-06-03 13:02] VITALS: BMI 26.6
[2023-06-03 13:59] LABS: Basophils # 0.1 K/mm3 (0-0.2); Basophils % 1.1 % (0.1-2.0); Eosinophils # 0.3 K/mm3 (0.0-0.4); Eosinophils % 3.1 % (0.1-12.0); Hematocrit 35.1 % (42.0-52.0); Hemoglobin 11.4 g/dL (14.1-18.0); Lymphocytes # 2.7 K/mm3 (0.7-4.5); Lymphocytes % 31.2 % (10-50); Mean Corpuscular HGB Conc 32.6 g/dL (31.8-35.4); Mean Corpuscular Hemoglobin 27.4 pg (27.0-31.2); Mean Corpuscular Volume 84.1 fl (80-94); Mean Platelet Volume 8.6 fl (7.4-10.4); Monocytes # 0.4 K/mm3 (0.1-1.0); Monocytes % 4.9 % (1.7-9.3); Neutrophils # 5.2 K/mm3 (1.8-7.8); Neutrophils % 59.8 % (37.0-80.0); Platelet Count 273 K/mm3 (142-424); Red Blood Count 4.17 M/mm3 (4.60-6.20); Red Cell Distribution Width 16.1 % (11.5-17.5); White Blood Count 8.7 K/mm3 (4.8-10.8)
[2023-06-03 14:05] LABS: Alanine Aminotransferase 90 U/L (12-78); Aspartate Amino Transferase 69 U/L (17-59); Bilirubin,Unconjugated 0.2 mg/dL (0.0-1.1)
[2023-06-03 14:06] LABS: Albumin Level 4.3 g/dl (3.5-5.0); Alkaline Phosphatase 277 U/L (38-126); Bilirubin,Direct 0.3 mg/dl (0.0-0.4); Bilirubin,Indirect 0.3 mg/dL (0.0-0.9); Bilirubin,Total 0.6 mg/dl (0.2-1.3); Blood Urea Nitrogen 16 mg/dl (9-20); Creatinine Clearance Estimated 119 mL/min (50-200); Estimated Glomerular Filt Rate 102 ml/min (>60); GFR (African American) 123 ML/MIN (>60); Total Protein,Serum 7.8 g/dl (6.3-8.2)
[2023-06-03 14:12] LABS: C-Reactive Protein 5.2 mg/L (0-4)
== END 2023-06-03 13:50 | disposition home or self-care (01) ==
LOC: INF 12:59
PROVIDERS: PCP Family Medicine; Visit Provider Orthopaedic Surgery Orthopaedic Surgery of the Spine
DX: R78.81 Bacteremia (principal); B96.20 Unspecified Escherichia coli [E. coli] as the cause of diseases classified elsewhere
CPT/HCPCS: 36415; 80076; 82565; 84520; 85025; 86140; G0463

== ENCOUNTER 2023-12-23 11:40 | Outpatient (POV) | payer BC, SELFPAY | END 2023-12-23 23:59 | disposition home or self-care (01) | LOC: SC 11:40 | PROVIDERS: PCP Family Medicine; Visit Provider Dermatology | DX: Z00.00 Encounter for general adult medical examination without abnormal findings (principal) ==

== ENCOUNTER 2024-09-24 08:49 | Outpatient (CLI) | payer BC, SELFPAY ==
--- NOTE | 2024-09-24 08:53 | CT_ITS ---
FINAL REPORT TECHNIQUE: Axial images were obtained from the lung apex to the mid abdomen by computed tomography. This study was performed with techniques to keep radiation doses as low as reasonably achievable (ALARA). Individualized dose reduction techniques using automated exposure control or adjustment of mA and/or kV according to the patient's size were employed. CLINICAL HISTORY: SCREENING FORMER SMOKER, QUIT 1 YR AGO, SMOKED 2 PKS PER DAY X 30 YRS COMPARISON: 01/06/2023 FINDINGS: CHEST CT LOW DOSE CTDI vol (mGy): 2.90 DLP (mGy-cm): 118.03 There are calcified right paratracheal and right hilar lymph nodes. The heart is normal in size. There is no pericardial or pleural effusion. Previously seen nodules are again identified. Nodules in the right middle lobe measure up to 5 mm well-seen on image 49 of series 4. Previously identified lingular nodule is less well-seen on today's exam. Findings are all stable. No new mass or nodule is identified. Limited images of the upper abdomen are unremarkable. IMPRESSION: Stable pulmonary nodules. Lung RADS category 2. Recommend 12 month follow-up low-dose chest CT. Reviewed, Interpreted and Dictated by Wallace Sanford MD Transcribed by Heena Medeiros Authenticated and [facility]
== END 2024-09-24 23:59 | disposition home or self-care (01) ==
LOC: RAD 08:50
PROVIDERS: PCP Family Medicine; Visit Provider Family Medicine
DX: Z87.891 Personal history of nicotine dependence (principal); Z12.2 Encounter for screening for malignant neoplasm of respiratory organs
CPT/HCPCS: 71271

== ENCOUNTER 2025-06-10 11:25 | Outpatient (CLI) | payer BC, SELFPAY ==
--- OUTSIDE RECORDS SUMMARY | 2024-09-03 04:45 | XMS_ITS ---
Author Organization [facility] Address [address] [id number] Care Team Providers Care Table Cover Folder Name Role Phone Jacob Rendon Unavailable [phone] Results Component Value Reference Range Notes Glycohemoglobin A1c (in hous e) Reviewed date:09/06/2024 09:17:22 AM Interpretation:8.5 Performing Lab: Notes/Report: 8.5 glycohemoglobin 8.5% 5 - 6.5 % P-Comprehensive Metabolic Pa raven (CMP) Reviewed date:09/06/2024 09:17:22 AM Interpretation:gluc 248, alk phos 134, ast 52 Performing Lab: Notes/Report: Test performed by [facility] [facility] [employer] Formerly named [facility] , [address], [place] [address] Billy Leal MD, Chemistry Quality Control Technician CLIA: [id number] Sodium 137 135-145 mmol/L Potassium 4.6 3.5-5.3 mmol/L Chloride 101 97-108 mmol/L CO2 23 22-32 mmol/L Glucose 248 65-99 mg/dL BUN 14 6-20 mg/dL Creatinine 1.01 0.70-1.30 mg/dL Calcium 9.2 8.6-10.4 mg/dL eGFR by Creatinine 89 >59 mL/min/1.73m2 Protein 7.7 6.0-8.3 g/dL Albumin 4.7 3.5-5.3 g/dL Alkaline Phosphatase 134 40-129 IU/L ALT (SGPT) 50 <5-55 IU/L AST (SGOT) 52 <5-46 IU/L Bilirubin, Total 0.7 <0.2-1.2 mg/dL A/G Ratio 1.6 1.1-2.5 P-Lipid Panel Reviewed date:09/06/2024 09:17:22 AM Interpretation:trigs 219, hdl 28 Performing Lab: Notes/Report: Test performed by [employer], [address] , [address], [place] [address] Billy Leal MD, Chemistry Quality Control Technician CLIA: [id number] Cholesterol 128 <200 mg/dL Triglycerides 219 <150 mg/dL HDL Cholesterol 28 >39 mg/dL Cholesterol / HDL Ratio 4.57 0.00-4.99 Ratio Non-HDL Cholesterol 100 <130 mg/dL LDL Cholesterol (Calculation) 56 <130 mg/dL LDL Cholesterol Levels* Less than 100 mg/dL Optimal 100 to 129 mg/dL Near Optimal/ Above Optimal 130 to 159 mg/dL Borderline High 160 to 189 mg/dL High 190 mg/dL and above Very High * Categories as recommended by the 2004 ATPIII guidelines LDL/HDL Ratio 2.0 <3.3 Ratio LDL Cholesterol Patient History Test Date: 03/27/2023 LDL Results: 56 Units: mg/dL % Change: - Test Date: 09/03/2024 LDL Results: 56 Units: mg/dL % Change: 0% P-PSA Reviewed date:09/06/2024 09:17:22 AM Interpretation: Normal Performing Lab: Notes/Report: Test performed by [facility] [address] [place] [address] , [place] [address] Billy Leal MD, Chemistry Quality Control Technician CLIA: [id number] PSA 0.74 <4.00 ng/mL Please note this is an ultrasensitive PSA assay with a lower limit of detection of 0.014 ng/mL. This test is performed by the [employer] ECLIA methodology. Values obtained with different assay methods or kits cannot be directly compared. P-TSH reflex to FT4 Reviewed date:09/06/2024 09:17:22 AM Interpretation: Normal Performing Lab: Notes/Report: Test performed by [facility] [address] [place] [address] , [place] [address] Billy Leal MD, Chemistry Quality Control Technician CLIA: [id number] TSH reflex to FT4 2.99 0.43-5.25 mU/L P-Vitamin D 25-Hydroxy Reviewed date:09/06/2024 09:17:22 AM Interpretation: Normal Performing Lab: Notes/Report: Test performed by [facility] [facility] [address] , [address], [place] [address] Billy Leal MD, Chemistry Quality Control Technician CLIA: [id number] Vitamin D 25-Hydroxy 63.2 30.0-100.0 ng/mL Interpretation of Vitamin D 25 OH: < 20 ng/mL - Deficiency 20 - 29 ng/mL - Insufficiency 30 - 100 ng/mL - Sufficiency > 100 ng/mL - Super-therapeutic- toxicity may occur above this level. Clinical correlation required. REASON FOR VISIT blood work Medications Medication SIG (Take, Route, Frequency, Duration) Notes Start Date End Date Status Albuterol Sulfate HFA 108 (90 Base) MCG/ACT 1 or 2 puff as needed Inhalation every 4 hrs 08/12/2024 Active metFORMIN HCl ER 500 MG TAKE 1 TABLET BY MOUTH DAILY. NEED APPT WITH MD; Duration: 30 days Active Vitamin D3 1.25 MG (90358 UT) TAKE 1 CAPSULE BY MOUTH ONCE A WEEK; Duration: 84 days Active Rosuvastatin Calcium 20 MG TAKE 1 TABLET BY MOUTH DAILY. NEED APPT WITH MD; Duration: 30 days Active Encounters Encounter Location Date Provider Diagnosis [facility] [address] [place] [id number] 09/03/2024 Jacob Rendon Type 2 diabetes tavo itus without complication, without long-term current use of insulin E11.9 ; Mixed hyperlipidemia E78.2 ; Hypertriglyceridemia E78.1 ; Vitamin D deficiency E55.9 and Prostate cancer screening Z12.5 Assessments Encounter Date Diagnosis (ICD Code) Assessment Notes Treatment Notes Treatment Clinical Notes Section Notes 09/03/2024 Type 2 diabetes tavo itus without complication, without long-term current use of insulin (ICD-10 - E11.9) 09/03/2024 Mixed hyperlipidemia (ICD-10 - E78.2) 09/03/2024 Hypertriglyceridemia (ICD-10 - E78.1) 09/03/2024 Vitamin D deficiency (ICD-10 - E55.9) 09/03/2024 Prostate cancer screening (ICD-10 - Z12.5) Plan Of Treatment Next Appt Details Provider Name:Jacob Gaspar , 09/09/2025 10:15:00 AM, [facility] [address], [address], [place], [place], [id number], Progress Notes * CYDNEY WOLFOB:[birth year] (55 yo M)Acc No.[id number]:09/03/2024 Patient: ADRIENNE JENKINS Provider: Mere Rendon M.D. :1970 A ge:54 Y S ex:Male Date:09/03/2024 Address:[address] [place] [address] Subjective: * Chief Complaints: * 1 . Blood work. * Medical History: * Medications: T aking Rosuvastatin Calcium 20 MG Tablet TAKE 1 TABLET BY MOUTH DAILY. NEED APPT WITH MD , Taking metFORMIN HCl ER 500 MG Tablet Extended Release 24 Hour TAKE 1 TABLET BY MOUTH DAILY. NEED APPT WITH MD , Taking Vitamin D3 1.25 MG (55587 UT) Capsule TAKE 1 CAPSULE BY MOUTH ONCE A WEEK , Taking Albuterol Sulfate HFA 108 (90 Base) MCG/ACT Aerosol Solution 1 or 2 puff as needed Inhalation every 4 hrs , Discontinued Zithromax Z-Bernard 250 MG Tablet as directed Orally once daily , Medication List reviewed and reconciled with the patient Objective: * Vitals: Assessment: * Assessment: 1. T ype 2 diabetes mellitus without complication, without long-term current use of insulin - E11.9 (Primary) 2 . M ixed hyperlipidemia - E78.2 3 . H ypertriglyceridemia - E78.1 4 . V itamin D deficiency - E55.9 5 . Prostate cancer screening - Z12.5 Plan: * Treatment: Value Reference Range A /G Ratio 1.6 1.1-2.5 - * A lbumin 4.7 3.5-5.3 - g/dL * A lkaline Phosphatase 134 H 40-129 - IU/L * A LT (SGPT) 50 <5-55 - IU/L * A ST (SGOT) 52 H <5-46 - IU/L * B ilirubin, Total 0.7 <0.2-1.2 - mg/dL * B UN 14 6-20 - mg/dL * C alcium 9.2 8.6-10.4 - mg/dL * C hloride 101 97-108 - mmol/L * C O2 23 22-32 - mmol/L * C reatinine 1.01 0.70-1.30 - mg/dL * G lucose 248 H 65-99 - mg/dL * P otassium 4.6 3.5-5.3 - mmol/L * S odium 137 135-145 - mmol/L * P rotein 7.7 6.0-8.3 - g/dL * e GFR by Creatinine 89 >59 - mL/min/1.73m2 * Anne Nova 09/06/2024 9:17: 11 AM >See phone encounter ?LAB: Glycohemoglobin A1c (in house) (Collection Date & Time - 09/03/2024)? 8.5* Value Reference Range g lycohemoglobin 8.5% 5 - 6.5 % * Xi Wen 09/03/2024 9:27:22 AM > [facility] 09/06/2024 9:17:11 AM >See phone encounter 2.?Mixed hyperlipidemia?LAB: P-Comprehensive Metabolic Panel (CMP) (Collection Date & Time - 09/03/2024 10:50 AM)?gluc 248, alk phos 134, ast 52* Value Reference Range A /G Ratio 1.6 1.1-2.5 - * A lbumin 4.7 3.5-5.3 - g/dL * A lkaline Phosphatase 134 H 40-129 - IU/L * A LT (SGPT) 50 <5-55 - IU/L * A ST (SGOT) 52 H <5-46 - IU/L * B ilirubin, Total 0.7 <0.2-1.2 - mg/dL * B UN 14 6-20 - mg/dL * C alcium 9.2 8.6-10.4 - mg/dL * C hloride 101 97-108 - mmol/L * C O2 23 22-32 - mmol/L * C reatinine 1.01 0.70-1.30 - mg/dL * G lucose 248 H 65-99 - mg/dL * P otassium 4.6 3.5-5.3 - mmol/L * S odium 137 135-145 - mmol/L * P rotein 7.7 6.0-8.3 - g/dL * e GFR by Creatinine 89 >59 - mL/min/1.73m2 * Anne Nova 09/06/2024 9:17: 11 AM >See phone encounter ?LAB: P-Lipid Panel (Collection Date & Time - 09/03/2024 10:50 AM)?trigs 219, hdl 28* Value Reference Range C holesterol / HDL Ratio 4.57 0.00-4.99 - Ratio * C holesterol 128 <200 - mg/dL * H DL Cholesterol 28 L >39 - mg/dL * L DL Cholesterol (Calculation) 56 <130 - mg/d L * L DL/HDL Ratio 2.0 <3.3 - Ratio * N on-HDL Cholesterol 100 <130 - mg/dL * T riglycerides 219 H <150 - mg/dL * Anne Nova 09/06/2024 9:17: 11 AM >See phone encounter ?LAB: P-TSH reflex to FT4 (Collection Date & Time - 09/03/2024 10:50 AM)? Normal* Value Reference Range T SH reflex to FT4 2.99 0.43-5.25 - mU/L * Anne Nova 09/06/2024 9:17: 11 AM >See phone encounter 3.?Hypertriglyceridemia?LAB: P-Lipid Panel (Collection Date & Time - 09/03/2024 10:50 AM)?trigs 219, hdl 28* Value Reference Range C holesterol / HDL Ratio 4.57 0.00-4.99 - Ratio * C holesterol 128 <200 - mg/dL * H DL Cholesterol 28 L >39 - mg/dL * L DL Cholesterol (Calculation) 56 <130 - mg/d L * L DL/HDL Ratio 2.0 <3.3 - Ratio * N on-HDL Cholesterol 100 <130 - mg/dL * T riglycerides 219 H <150 - mg/dL * Anne Nova 09/06/2024 9:17: 11 AM >See phone encounter 4.?Vitamin D deficiency?LAB: P-Vitamin D 25-Hydroxy (Collection Date & Time - 09/03/2024 10:50 AM)? Normal* Value Reference Range V itamin D 25-Hydroxy 63.2 30.0-100.0 - ng/mL * Anne Nova 09/06/2024 9:17: 11 AM >See phone encounter 5.?Prostate cancer screening?LAB: P-PSA (Collection Date & Time - 09/03/2024 10:50 AM)?Normal* Value Reference Range P SA 0.74 <4.00 - ng/mL * Anne Nova 09/06/2024 9:17: 11 AM >See phone encounter * Procedure Codes: 3 6416 CAPILLARY BLOOD DRAW, 84101 GLYCATED HEMOGLOBIN TEST, Modifiers: QW * Images: Billing Information: * Visit Code: * Procedure Codes: 11635 CAPILLARY BLOOD DRAW. 67169 GLYCATED HEMOGLOBIN TEST. Modifiers: QW * Electronic signature of Janet Rendon MD on 06/10/2025 at 11:28 AM EDT Sign off status: Pending * Provider: Mere Rendon M.D. Date: 1 11/04/2023 Generated for Balbina avila/Susanna/Christineitting on: 0 06/10/2025 11:28 AM EDT
--- OUTSIDE RECORDS SUMMARY | 2024-09-09 06:30 | XMS_ITS ---
Author Organization [facility] Address [address] [id number] Care Team Providers Care Linen Aide Name Role Phone Jacob Rendon Unavailable [phone] Allergies Allergen (clinical drug ingredient) Drug/Non Drug Allergy documented on EMR Reaction Allergy Type Onset Date Status Penicillin Unknown Drug Allergy Active Results Component Value Reference Range Notes P-Microalbumin/Creatinine, R andom Urine Sample Reviewed date:09/10/2024 11:06:52 AM Interpretation:a/c 1872 Performing Lab: Notes/Report: Test performed by [facility], [address] , [address], [place] [address] Billy Leal MD, Director Of Early Childhood Education CLIA: [id number] Albumin/Creatinine Ratio, Urine 1872 0-30 ug/m g Microalbumin, Urine, Random 275.8 Creatinine, Urine 147.3 CT Scan : Chest, low dose Reviewed date:09/27/2024 01:20:42 PM Interpretation:stable, recommend annual f/u Performing Lab: Notes/Report: stable, recommend annual f/u REASON FOR VISIT check up Medications Medication SIG (Take, Route, Frequency, Duration) Notes Start Date End Date Status Rosuvastatin Calcium 20 MG TAKE 1 TABLET BY MOUTH DAILY. NEED APPT WITH MD; Duration: 30 days Active metFORMIN HCl ER 500 MG 2 tablet with ev ening meal Orally Once a day; Duration: 90 days Active Vitamin D3 1.25 MG (34220 UT) TAKE 1 CAPSULE BY MOUTH ONCE A WEEK; Duration: 84 days Active Albuterol Sulfate HFA 108 (90 Base) MCG/ACT 1 or 2 puff as needed Inhalation every 4 hrs 08/12/2024 Active Social History Tobacco Use: Social History Observation Description Date Details (start date - stop date) Current Smoker NA - NA CURRENT TOBACCO USE: Question Answer Notes Are you a: current every day smoker 2 PPD Vital Signs Blood pressure systolic 122 mm Hg 09/09/20 24 Blood pressure diastolic 80 mm Hg 024 Heart Rate 100 /min 09/09/2024 Height 67 in 09/09/2024 Weight 209.8 lbs 09/09/2024 BMI 32.86 kg/m2 09/09/2024 Encounters Encounter Location Date Provider Diagnosis [facility] [address] [place] [id number] 09/09/2024 Jacob Rendon Type 2 diabetes mellitus without complication, without long-term current use of insulin E11.9 ; Personal history of nicotine dependence Z87.891 and Screening for lung cancer Z12.2 Assessments Encounter Date Diagnosis (ICD Code) Assessment Notes Treatment Notes Treatment Clinical Notes Section Notes 09/09/2024 Type 2 diabetes mellitus without complication, without long-term current use of insulin (ICD-10 - E11.9) A1c is 8.5%, Not at goal today. Discussed dietary changes 09/09/2024 Personal history of nicotine dependence (ICD-10 - Z87.891) 09/09/2024 Screening for lung cancer (ICD-10 - Z12.2) Plan Of Treatment Medication Medication Name Sig Start Date Stop Date Notes metFORMIN HCl ER 500 MG 2 tablet with ev ening meal Orally Once a day; Duration: 90 days Treatment Notes Assessment Notes Type 2 diabetes mellitus wit hout complication, without long-term current use of insulin A1c is 8.5%, Not at goal today. Discusse d dietary changes Next Appt Details Follow Up: 3 Months, Reason: Provider Name:Jacob Gaspar ry, 09/09/2025 10:15:00 AM, [address], [address], [place], [phone], Progress Notes * CYDNEY WOLFOB:[birth year] (55 yo M)Acc No.[id number]:09/09/2024 Progress Notes Patient: ADRIENNE JENKINS Provider: Mere Rendon M.D. :1970 A ge:54 Y S ex:Male Date:09/09/2024 Address:[address] [place] [address] Subjective: * Chief Complaints: * 1 . Check up. * HPI: E ndocrinology: 54 year old male presents with c/o Recent Blood Sugars P t here to f/u on DM 2, pt states he does check blood sugar when he feels bad and it is high . C ardiology: c/o Hyperlipidemia P t is fasting today. * ROS: D ERMATOLOGY: no R norbert. n o H camron. G ASTROENTEROLOGY: no N ausea. n o V omiting. U ROLOGY: no D ifficulty urinating. n o B lood in urine. * Medical History: 6 0 pack year smoking history as of 2022, Type 2 Diabetes, Hyperlipidemia, Vitamin D Deficiency, Diverticulosis, Colostomy, s/p excision of benign colonic mass (diverticular) in 2022, Sepsis due to E. coli, treated at 2022. * Surgical History: C holecystectomy , Knee , Jaw , Mass Removal from Colon- [facility] 05/01/2023, Colostomy reversal 08/2023. * Hospitalization/Major Diagno stic Procedure: C olon surgery- [facility], 04/2023. * Family History: F ather: , diagnosed with Heart Disease. M other: alive 72 yrs. M aternal Grand Father: diagnosed with Diabetes. 1 brother(s) , 1 sister(s) . 3 son(s) . . * Social History: C URRENT TOBACCO USE: Yes A re you a: c urrent every day smoker 2 PPD. C affeine: yes, frequency: 2 cups per day. Alcohol: no. * Medications: T aking Rosuvastatin Calcium 20 MG Tablet TAKE 1 TABLET BY MOUTH DAILY. NEED APPT WITH , Taking metFORMIN HCl ER 500 MG Tablet Extended Release 24 Hour 1 tablet with evening meal Orally Once a day , Taking Vitamin D3 1.25 MG (83109 UT) Capsule TAKE 1 CAPSULE BY MOUTH ONCE A WEEK , Taking Albuterol Sulfate HFA 108 (90 Base) MCG/ACT Aerosol Solution 1 or 2 puff as needed Inhalation every 4 hrs , Medication List reviewed and reconciled with the patient * Allergies: P enicillin. Objective: * Vitals: W t:209.8, Temp:97.9, BP:122/80, HR:100, Nurse:ROD, Ht: 67, BMI:32.86. * Examination: E ndocrinology: General Appearance: N AD. H eart: R SR. L ungs:?clear to auscultation. Assessment: * Assessment: 1. T ype 2 diabetes mellitus without complication, without long-term current use of insulin - E11.9 (Primary) 2 . P ersonal history of nicotine dependence - Z87.891 3 . S creening for lung cancer - Z12.2 Plan: * Treatment: Value Reference Range A lbumin/Creatinine Ratio, Urine 1872 H 0-30 - ug /mg * C reatinine, Urine 147.3 - mg/dL * M icroalbumin, Urine, Random 275.8 - mg/dL * Anne Nova 09/10/2024 11:0 6:49 AM >See phone encounter Notes: A1c is 8.5%, Not at goal today. Discussed dietary changes??2.?Personal history of nicotine dependence?Imaging: CT Scan : Chest, low dose (Performed Date - 09/24/2024)?stable, recommend annual f/u* Jacquie Grayson 09/09/2024 11:1 2:45 AM > auth#[id number]; valid 09/09/2024 through 10/08/2024; CPT code 29047; faxed to [facility] SchedulingAnne Nova 09/09/2024 11:50:11 AM > 09/24 @ 9:15aKingXi 09/27/2024 1:20:23 PM > Pt informed 3.?Screening for lung cancer?Imaging: CT Scan : Chest, low dose (Performed Date - 09/24/2024)?stable, recommend annual f/u* Jacquie Grayson 09/09/2024 11:1 2:45 AM > auth#[id number]; valid 09/09/2024 through 10/08/2024; CPT code 41924; faxed to [facility] Anne Forde 09/09/2024 11:50:11 AM > 09/24 @ 9:15aKingXi 09/27/2024 1:20:23 PM > Pt informed * Follow Up: 3 Months * Images: Billing Information: * Visit Code: 30782 Office Visit, Est Pt., Level 3. * Procedure Codes: * Electronic signature of Janet Rendon MD on 06/10/2025 at 11:28 AM EDT Sign off status: Pending * Provider: Mere Rendon M.D. Date: 1 11/10/2023 Generated for Balbina avila/Susanna/eTransmitting on: 0 06/10/2025 11:28 AM EDT History and Physical Notes * HPI (History of Present Illness) Category Sub-Category Detail Notes Category Not es Endocrinology Recent Blood Sugars Pt here to f /u on DM 2, pt states he does check blood sugar when he feels bad and it is high Cardiology Hyperlipidemia Pt is fasting today Examination Category Sub-Category Detail Notes Category Not es Endocrinology Heart: RSR Lungs: clear to auscultatio n General Appearance: NAD
--- OUTSIDE RECORDS SUMMARY | 2024-12-08 05:45 | XMS_ITS ---
Author Organization [facility] Address [address] [facility] [address] [place] [id number] Care Team Providers Care Puller Out Name Role Phone Jacob Rendon Unavailable [phone] Allergies Allergen (clinical drug ingredient) Drug/Non Drug Allergy documented on EMR Reaction Allergy Type Onset Date Status Penicillin Unknown Drug Allergy Active Results Component Value Reference Range Notes Glucose (In-House) Reviewed date:12/08/2024 10:13:05 AM Interpretation: Performing Lab: Notes/Report: blood glucose 190 74 - 106 mg/dL Glycohemoglobin A1c (in hous e) Reviewed date:12/08/2024 10:13:32 AM Interpretation: Performing Lab: Notes/Report: glycohemoglobin 7.5% 5 - 6.5 % REASON FOR VISIT 3 month check Medications Medication SIG (Take, Route, Frequency, Duration) Notes Start Date End Date Status metFORMIN HCl ER 500 MG 2 tablet with ev ening meal Orally Once a day Active Albuterol Sulfate HFA 108 (90 Base) MCG/ACT 1 or 2 puff as needed Inhalation every 4 hrs 08/12/2024 Active Rosuvastatin Calcium 20 MG TAKE 1 TABLET BY MOUTH DAILY. NEED APPT WITH MD; Duration: 30 days Active Vitamin D3 1.25 MG (34135 UT) TAKE 1 CAPSULE BY MOUTH ONCE A WEEK; Duration: 84 days Active Social History Tobacco Use: Social History Observation Description Date Details (start date - stop date) Current Smoker NA - NA CURRENT TOBACCO USE: Question Answer Notes Are you a: current every day smoker 2 PPD Vital Signs Blood pressure systolic 130 mm Hg 12/09/19 25 Blood pressure diastolic 80 mm Hg 025 Heart Rate 84 /min 12/08/2024 Height 67 in 12/08/2024 Weight 210 lbs 12/08/2024 BMI 32.89 kg/m2 12/08/2024 Encounters Encounter Location Date Provider Diagnosis [facility] [address] [facility] [address] [facility] [address] [place], [place] [id number] 12/08/2024 Jacob Rendon Type 2 diabetes mellitus without complication, without long-term current use of insulin E11.9 Assessments Encounter Date Diagnosis (ICD Code) Assessment Notes Treatment Notes Treatment Clinical Notes Section Notes 12/08/2024 Type 2 diabetes mellitus without complication, without long-term current use of insulin (ICD-10 - E11.9) Plan Of Treatment Medication Medication Name Sig Start Date Stop Date Notes metFORMIN HCl ER 500 MG 2 tablet with ev ening meal Orally Once a day Next Appt Details Follow Up: 6 Months, Reason: Provider Name:Jacob Gaspar , 09/09/2025 10:15:00 AM, [facility] [address] [facility], [address], [place], [id number], Progress Notes * CYDNEY WOLFOB:[birth year] (55 yo M)Acc No.[id number]:12/08/2024 Progress Notes Patient: ADRIENNE JENKINS Provider: Mere Rendon M.D. :1970 A ge:54 Y S ex:Male Date:12/08/2024 Address:[address] [place] [address] Subjective: * Chief Complaints: * 1 . 3 month check. * HPI: E ndocrinology: 54 year old male presents with c/o Recent Blood Sugars P t here to f/u on DM 2. Pt states he does check b lood sugar at home and it is typically around 120. * ROS: D ERMATOLOGY: no R norbert. [...] , Jaw , Mass Removal from Colon- [facility] 05/01/2023, Colostomy reversal 08/2023. * Hospitalization/Major Diagno stic Procedure: C olon surgery- [facility], 04/2023. * Family History: F ather: , diagnosed with Heart Disease. M other: alive 73 yrs. M aternal Grand Father: diagnosed with [...] MD , Taking Vitamin D3 1.25 MG (89824 UT) Capsule TAKE 1 CAPSULE BY MOUTH ONCE A WEEK , Taking Albuterol Sulfate HFA 108 (90 Base) MCG/ACT Aerosol Solution 1 or 2 puff as needed Inhalation every 4 hrs , Taking metFORMIN HCl ER 500 MG Tablet Extended Release 24 Hour 2 tablet with evening meal Orally Once a day , Medication List reviewed and reconciled with the patient * Allergies: P enicillin. Objective: * Vitals: W t:210, Temp:98.0, BP:130/80, HR:84, Nurse:kelvin, Ht: 67, BMI:32.89. * Examination: E ndocrinology: General Appearance: N AD. H eart: R SR. L ungs:?clear to auscultation. Assessment: * Assessment: 1. T ype 2 diabetes mellitus without complication, without long-term current use of insulin - E11.9 (Primary) Plan: * Treatment: Value Reference Range b lood glucose 190 74 - 106 mg/dL * Xi Wen 12/08/2024 10:12:5 5 AM > , Provider reviewed results while patient in office. ?LAB: Glycohemoglobin A1c (in house) (Collection Date & Time - 12/08/2024)* Value Reference Range g lycohemoglobin 7.5% 5 - 6.5 % * Xi Wen 12/08/2024 10:13:1 9 AM > , Provider reviewed results while patient in office. * Procedure Codes: 8 2950 GLUCOSE TEST, 91478 CAPILLARY BLOOD DRAW, 02155 GLYCATED HEMOGLOBIN TEST, Modifiers: QW , 3075F SYST BP GE 130 - 139MM HG, 3079F DIAST BP 80-89 MM HG, 3051F HG A1C>EQUAL 7.0%<8.0% * Follow Up: 6 Months * Images: Billing Information: * Visit Code: 61587 Office Visit, Est Pt., Level 3. * Procedure Codes: 78616 GLUCOSE TEST. 45243 CAPILLARY BLOOD DRAW. 88923 GLYCATED HEMOGLOBIN TEST. Modifiers: QW 3075F SYST BP GE 130 - 139MM HG. 3079F DIAST BP 80-89 MM HG. 3051F HG A1C>EQUAL 7.0%<8.0%. * Electronic signature of Janet Rendon MD on 06/10/2025 at 11:28 AM EDT Sign off status: Pending * Provider: Mere Rendon M.D. Date: 0 12/08/2024 Generated for Balbina avila/Susanna/Christineitting on: 0 06/10/2025 11:28 AM EDT History and Physical Notes * HPI (History of Present Illness) Category Sub-Category Detail Notes Category Not es Endocrinology Recent Blood Sugars Pt here to f /u on DM 2. Pt states he does check blood sugar at home and it is typically around 120 Examination Category Sub-Category Detail Notes Category Not es Endocrinology Heart: RSR Lungs: clear to auscultatio n General Appearance: NAD
--- OUTSIDE RECORDS SUMMARY | 2025-06-10 11:28 | XMS_ITS | Clinical Summary ---
Author Organization [facility] Address [address] [place] [address] Care Team Providers Care Machine Maintenance Supervisor Name Role Phone Jacob Rendon MD Primary Care Provider + [phone] Allergies Active Allergy Reactions Criticality Noted Date Comments Penicillins Rash,Fever Medium 05/01/2023 Medications metFORMIN XR (Glucophage-XR) 500 MG 24 hr tablet Take 1 tablet (500 mg) by mouth 1 (one) time each day. Do not crush, chew, or split. Active rosuvastatin (Crestor) 20 MG tablet Take 1 tablet (20 mg) by mouth 1 (one) time each day. Active cholecalciferol (Vitamin D3) 1.25 MG (13183 UT) capsule Take 1 capsule (50,000 Units) by mouth 1 (one) time per week. Wednesdays Active methocarbamol (Robaxin) 500 MG tablet TAKE 1 TABLET BY MOUTH 3 TIMES A DAY IF NEEDED FOR MUSCLE SPASMS 40 tablet Active Active Problems Problem Noted Date Diagnosed Date Electrolyte abnormality 05/18/2023 Overview (05/18/2023): Replace per ICU protocol Type 2 diabetes mellitus, wi thout long-term current use of insulin 05/17/2023 Overview (05/18/2023): Hold home metformin. 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 Attributed to dilution after several boluses. No signs of bleeding Repeat H/H at 1200 Septic shock 05/17/2023 09/13/2023 Overview (05/18/2023): Hx of ESBL ecoli Possible UTI/pylo. [place] Cx: UA + nitrites and LE. Blood cx +CTXM ecoli Continue fluid resuscitation. Currently not requiring pressors. MAP goal>65 Continue Merrem. 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 No definite rupture. Cystogram could be considered. Correlation with urinalysis is recommended. 3.Procedural changes with placement of a left ureteral stent. Gas within the left upper pole calyces could be postoperative, however emphysematous pyelitis is not excluded. Urology following F/u cultures and continue resuscitation Hyperkalemia 05/17/2023 05/18/2023 Overview (05/17/2023): 2/2 COREY and sepsis. K 7 on admission. No Twave changes K down to 6 with initial fluid boluses. Continue resuscitation. Insulin/D50 prn. Frequent lab checks. Hyponatremia 05/17/2023 05/18/2023 Overview (05/17/2023): NA 128 on admission. 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 No 09/12/2023 Within the last year, have y ou been humiliated or emotionally abused in other ways by your partner or ex-partner? No Within the last year, have y ou been kicked, hit, slapped, or otherwise physically hurt by your partner or ex-partner? No 09/12/2023 Within the last year, have y ou been raped or forced to have any kind of sexual activity by your partner or ex-partner? No 09/12/2023 PHQ-2 Answer Date Recorded Patient Health Questionnaire-2 Score 0 09/30/2023 Hunger Vital Sign Answer Date Recorded Within the past 12 months, y ou worried that your food would run out before you got the money to buy more. Never true 09/12/20 23 Within the past 12 months, t he food you bought just didn't last and you didn't have money to get more. Never true 09/12/2023 PRAPARE - Transportation Answer Date Re corded In the past 12 months, has l ack of transportation kept you from medical appointments or from getting medications? No 08/29 In the past 12 months, has l ack of transportation kept you from meetings, work, or from getting things needed for daily living? No 09/12/2023 Housing Stability Vital Sign Answer Bill e Recorded In the last 12 months, was t here a time when you were not able to pay the mortgage or rent on time? No 09/12/2023 Number of Places Lived in the Last Year Not on f ile 09/12/2023 In the last 12 months, was t here a time when you did not have a steady place to sleep or slept in a custodial (including now)? No 09/12/2023 Utilities Answer Date Recorded In the past 12 months has th e electric, gas, oil, or water company threatened to shut off services in your home? No 09/12/2023 PHQ-2A Answer Date Recorded Patient Health Questionnaire-2 Score 0 07/10/2023 Sex and Gender Information Value Date Recorded Sex Assigned at Not on file Legal Sex Male 8:25 PM EDT Gender Identity Not on file Sexual Orientation Not on file Last Filed Vital Signs Vital Sign Reading Time Taken Comments Blood Pressure 141/91 09/30/2023 3:48 PM EST Pulse 96 09/30/2023 3:48 PM EST Temperature 36.6 C (97.8 F) 09/30/2023 3:48 PM EST Respiratory Rate 16 09/13/2023 7:38 AM EST Oxygen Saturation 94% 09/13/2023 7:38 AM EST Inhaled Oxygen Concentration - - Weight 86.3 kg (190 lb 4.8 oz) 09/30/2023 3:48 P M EST Height 167 cm (5' 5.75 ) 09/30/2023 3:48 PM EST Body Mass Index 30.95 09/30/2023 3:48 PM EST Plan of Treatment Health Maintenance Due Date Last Done Comments [facility]-HIV Screening 1970 [facility]-Hepatitis C Screening 1970 [facility]-Infant/Child/Adol SDOH Screenings 1972 Diabetes: Dental Exam 1982 [facility]- SDOH Screenings 1990 [facility]-Adult SDOH Screenings 1990 [facility]-DTaP,Tdap,and Td Vaccine s (1 - Tdap) 1991 [facility]-Hepatitis B Vaccines (1 of 3 - 19+ 3-dose series) 1991 [facility]-Pneumococcal Vaccine: 50 + Years (1 of 2 - PCV) 1991 CT Colonography 2017 FIT-DNA 2017 FIT 2017 FOBT 2017 Sigmoidoscopy 2017 [facility]-Lung Cancer Screening 2022 [facility]-Zoster Vaccines (1 of 2) 2022 [facility]-Diabetes: Hemoglobin A1C 11/14/2023 05/17/2023 [facility]-Depression Screening 09/30/2024 09/30/2023 [id number] Vaccine ( - 2023- season) 2025 [facility]-Influenza Vaccine (#1) 2025 Colonoscopy 07/21/2033 07/21/2023 [facility]-Colorectal Cancer Screening 07/21/2033 [facility]-Obesity Intervention Completed 024, 07/22/2023 HPV Vaccines Aged Out No longer eligi ble based on patient's age to complete this topic [facility]-HIB Vaccines Aged Out No longer e ligible based on patient's age to complete this topic [facility]-Hepatitis A Vaccines Aged Out No longer eligible based on patient's age to complete this topic [facility]-IPV Vaccines Aged Out No longer e ligible based on patient's age to complete this topic [facility]-Rotavirus Vaccines Aged Out No lo nger eligible based on patient's age to complete this topic Medical Devices Implanted Type Area Real Estate Subagent Device Identifier Shelf Expiration Date Model / Serial / Lot Stent Ureteral Double Pigtail Pos 6fr 22cm - [id number] Implanted:Qty: 1 on 05/01/2023 by Davin Schwab MD at [facility] [id number] 08/29/2024 [id number] / / [id number] Explanted Type Area Real Estate Subagent Device Identifier Shelf Expiration Date Model / Serial / Lot Stent Ureteral Double Pigtail Pos 6fr 24cm - [id number] Explanted:Qty: 1 [facility] [id number] 12/25/2024 [id number] / / [id number] Procedures Procedure Name Priority Date/Time Associated Diagnosis Comments COLONOSCOPY Routine 07/21/2023 10:21 AM EDT Hx of colectomy HEMOGLOBIN A1C Add-On 05/17/2023 9:48 AM EDT from Last 3 Months or Most Recently Relevant to Health Maintenance Results * Colonoscopy (07/21/2023 10:21 AM EDT) Anatomical Region Laterality Modality Endoscopy Narrative 07/21/2023 10:30 AM EDT Table formatting from the original result was not included. Impression: Healthy end-to-end colorectal anastomosis in the sigmoid colon Multiple subcentimeter pancolonic polyps were removed with cold forceps biopsy Preoperative colonoscopy completed in the setting of prior sigmoid colectomy with protective ileostomy. Previous sigmoid colectomy attempted at outlying facility. Complicated by ureteral injury. Transfer to [facility]. Sigmoid colectomy completed. Today, colonoscopy demonstrates what appears to be intact colorectal anastomosis. Healthy. Widely patent. Curiously, multiple small polyps were noted throughout the entire length of the colon that could be visualized. Right colon with significant amount of stool that precluded visualization. Biopsies of colon polyps completed. This may affect recommendations. However, at this time ileostomy can be reversed. Recommendation Await pathology results Indication Order Indication: Hx of colectomy Medications midazolam (Versed) injection 6 mg fentaNYL (Sublimaze) injection 150 mcg (Totals for administrations occurring from 0935 to 1021 on 07/21/23) Staff Staff Role Veronica Herrera Endo Nurse Wallace Mack MD Proceduralist Betina Ortiz RN Endo Nurse Andrew Okeefe Endo Emergency Registrar Chelsea Carlisle MD No role selected Preprocedure A history and physical has been performed, and patient medication allergies have been reviewed. The patient's tolerance of previous anesthesia has been reviewed. The risks and benefits of the procedure and the sedation options and risks were discussed with the patient. All questions were answered and informed consent obtained. Details of the Procedure The patient underwent moderate sedation, which was administered by the procedural nurse. The patient's blood pressure, heart rate, level of consciousness, oxygen and respirations were monitored throughout the procedure. A digital rectal exam was performed. A perianal exam was performed. The scope was introduced through the anus and advanced to the transverse colon. Retroflexion was performed in the rectum. The quality of bowel preparation was evaluated using the [place] Bowel Preparation Scale with scores of: right colon = 2, transverse colon = 2, left colon = 2. The total BBPS score was 6. Bowel prep was adequate. The patient experienced no blood loss. The procedure was not difficult. The patient tolerated the procedure well. There were no apparent adverse events. Conscious sedation administered by myself, STELLA Mack MD; monitored and without complication. Betina Ortiz RN was independent observer. See nursing notes for details. Attestation I personally performed the entire procedure Events Procedure Events Event Event Time ENDO SCOPE IN TIME 07/21/2023 10:11 AM ENDO SCOPE OUT TIME 07/21/2023 10:19 AM Specimens ID Type Source Tests Collected by Time A : polyps Tissue Colon SURGICAL PATHOLOGY EXAM Wallace Mack MD 07/21/2023 1016 Findings Healthy end-to-end colorectal anastomosis in the sigmoid colon; no bleeding was identified Multiple sessile, adenomatous-appearing pancolonic polyps measuring smaller than 5 mm; no bleeding was identified; performed cold forceps biopsy us Wallace Mack MD GI PROCEDURE ORDERABLES Final Result * (ABNORMAL) Hemoglobin A1c (05/17/2023 9:48 AM EDT) Hemoglobin A1c 6.3(H) <5.7 % 05/17/2023 6:39 PM EDT [facility] Blood Venous blood specimen / Unknown Venipuncture / Unknown 05/17/2023 9:48 AM EDT 05/17/2023 9:54 AM EDT Narrative [facility] - 05/17/2023 6:39 PM EDT HA1C Interpretive Data: Diagnosis of Diabetes: Diabetic > or = 6.5% Pre-diabetic 5.7 to 6.4% Non-diabetic < or = 5.6% Glycemic Targets for Type I and Type II Diabetics: Non- Adults <7.0% Adults <6.0% Children and Adolescents <7.5% Source: [place] [employer]. Standards of medical care in diabetes,2017. Diabetes Care.2017:40 (suppl 1):S1-S135. HbA1c assay performed by an ion-exchange chromatography method that is certified traceable to the DCCT. Veronica Leal [facility] BLOOD ORDERABLES Fin al Result [facility] [address] [place] [address] from Last 3 Months or Most Recently Relevant to Health Maintenance Additional Health Concerns Infection Onset Date Last Indicated ESBL Comment:Blood culture collected on [05/17/23 resulted E. coli an ESBL. 05/05/2023 05/17/2023 MDRO Comment:05/05/2023 12:30 MDRT Eschericia coli multidrug resistant 05/05/2023 05/10/2023 e. coli 05/17/2023 05/17/[address] [place] [id number] ANTH Advance Directives * Full Code (Latest Code Status on File) Date Activated Date Inactivated Comments 09/10/2023 6:30 PM 09/13/2023 12:45 PM Question Answer Comments Patient has decision-making capacity? Yes * Full Code Date Activated Date Inactivated Comments 05/17/2023 3:53 PM 05/23/2023 7:36 PM Question Answer Comments Patient has decision-making capacity? Yes * Full Code Date Activated Date Inactivated Comments 05/02/2023 1:49 AM 05/06/2023 2:55 PM Question Answer Comments Patient has decision-making capacity? Yes * Full Code Date Activated Date Inactivated Comments 05/01/2023 3:10 PM 05/02/2023 1:49 AM Question Answer Comments Patient has decision-making capacity? Yes Care Teams Machine Maintenance Supervisor Relationship Specialty Start Date End Date Jacob Rendon MD [address] [place] [address] PCP - General 04/29/23
--- OUTSIDE RECORDS SUMMARY | 2025-06-10 11:28 | XMS_ITS | Encounter Summary ---
Author Organization [facility] Address [address] [place] [address] Care Team Providers Care Transmitter Chief Name Role Phone Jacob Rendon MD Primary Care Provider + [phone] Encounter Details Date Type Department Care Team (Late st Contact Info) Description 05/05/2023 Lab Requisition [facility] [address] [place] [address] Anay Jin MD [address] [facility] 7th [facility] [address] [place] [address] Encounter for general adult medical examination without abnormal findings Social History Tobacco Use Types Packs/Day Years Used Date Smoking Tobacco: Never Assessed Sex and Gender Information Value Date Recorded Sex Assigned at Not on file Legal Sex Male 8:25 PM EDT Gender Identity Not on file Sexual Orientation Not on file documented as of this encounter Functional Status * Calculated C-SSRS Risk Score (Lifetime/Recent) Answer Date of Assessment Author No Risk Indicated 05/06/2023 8:00 AM EDT Melanie Antonio, RN * Question Answer Date of Assessment Author 1. Wish to be (Past 1 Month) No 023 8:00 AM EDT Melanie Antonio, RN 2. Non-Specific Active Suici briana Thoughts (Past 1 Month) No 05/06/2023 8:00 AM EDT Melanie Antonio, RN 6. Suicidal Behavior (Lifetime) No 8:00 AM EDT Melanie Antonio RN documented as of this encounter Plan of Treatment Not on file documented as of this encounter Procedures Procedure Name Priority Date/Time Associated Diagnosis Comments MULTI DRUG RESISTANCE TEST Routine 05/05/2023 12:30 PM EDT Encounter for general adult medical examination without abnormal findings documented in this encounter Results * (ABNORMAL) Multi Drug Resistance Test (05/05/2023 12:30 PM EDT) Pathologist [facility] Culture Escherichia coli(A) PADMA 05/10/2023 12:53 PM EDT [facility] Comment: Multiple Drug Resistant The organism value for this result has been updated. These results have been appended to the previously preliminary verified report. The organism value for this result has been updated. These results have been appended to the previously preliminary verified report. This organism is an extended spectrum beta lactamase morning news producer and therefore, may not respond to extended spectrum cephalosporins and penicillins. Please consult Infectious Disease Dept. for appropriate antibiotic choices. Swab (Nares and Pari Rectal) 05/05/2023 12:30 PM EDT 05/05/2023 6:48 PM EDT Narrative Organism Antibiotic Method Susceptibility Escherichia coli Amikacin PADMA <=8 ug/ml: Susceptible Escherichia coli Ampicillin PADMA >16 ug/ml: Resistant Escherichia coli Ampicillin/Sulbactam PADMA >16/8 ug/ml: Resistant Escherichia coli Aztreonam PADMA >16 ug/ml: Resistant Escherichia coli Cefazolin PADMA Resistant Comment:Breakpoints when cefazolin is used for therapy of infections other than uncomplicated UTIs due to E. coli, K. pneumoniae, and P. mirabilis. Breakpoints are based on a dosage regimen of 2 g administered every 8 hours. Cefazolin should be used as a surrogate to predict susceptibility for all oral cephalosporins (including cephalexin and cefdinir) to E. coli, Klebsiella spp., and P. mirabilis isolated from the urine. Escherichia coli Cefepime PADMA >16 ug/ml: Resistant Escherichia coli Ceftriaxone PADMA >32 ug/ml: Resistant Escherichia coli Ciprofloxacin PADMA >2 ug/ml: Resistant Escherichia coli Ertapenem PADMA <=0.25 ug/ml: Susceptible Escherichia coli Gentamicin PADMA <=2 ug/ml: Susceptible Escherichia coli Levofloxacin PADMA >4 ug/ml: Resistant Escherichia coli Meropenem PADMA <=0.5 ug/ml: Susceptible Escherichia coli Piperacillin/Tazobactam PADMA 4/4 ug/ml: Resistant Escherichia coli Tetracycline PADMA >8 ug/ml: Resistant Escherichia coli Tobramycin PADMA <=2 ug/ml: Susceptible Escherichia coli Trimethoprim/Sulfamethoxazole PADMA >2/38 ug/ml: Resistant Anay Segura MD LAB MICROBIOLOGY - GENERAL ORDERABLES Final Result [facility] [address] [place] [address] documented in this encounter Visit Diagnoses Diagnosis Encounter for general adult medical examination without abnormal findings documented in this encounter Additional Health Concerns Infection Onset Date Last Indicated Resolved Time ESBL Comment:Blood culture collected on [05/17/23 resulted E. coli an ESBL. 05/05/2023 05/17/2023 MDRO Comment:05/05/2023 12:30 MDRT Eschericia coli multidrug resistant 05/05/2023 05/10/2023 e. coli 05/17/2023 05/17/2023 documented as of this encounter Care Teams Transmitter Chief Relationship Specialty Start Date End Date Jacob Rendon MD [address] [place] [address] PCP - General 04/29/23 documented as of this encounter
--- OUTSIDE RECORDS SUMMARY | 2025-06-10 11:28 | XMS_ITS | Patient Health Record ---
Author Organization [facility] Address [address] [place], [place] [address] Care Team Providers Care Health And Wellness Sales Consultant Name Role Phone Jacob Rendon Unavailable [phone] Allergies Allergen (clinical drug ingredient) Drug/Non Drug Allergy documented on EMR Reaction Allergy Type Onset Date Status Penicillin Unknown Drug Allergy Active Results Component Value Reference Range Notes P-Microalbumin/Creatinine, R andom Urine Sample Reviewed date:09/10/2024 11:06:52 AM Interpretation:a/c 1872 Performing Lab: Notes/Report: Test performed by [employer], [employer] [address] [place] [address] , [address], [place] [address] Billy Leal MD, Kennel Supervisor CLIA: [id number] Albumin/Creatinine Ratio, Urine 1872 0-30 ug/mg Microalbumin, Urine, Random 275.8 Creatinine, Urine 147.3 CT Scan : Chest, low dose Reviewed date:09/27/2024 01:20:42 PM Interpretation:stable, recommend annual f/u Performing Lab: Notes/Report: stable, recommend annual f/u Urinalysis - Inhouse (Not ye t reviewed by provider) Interpretation: Performing Lab: Notes/Report: Color/Clarity yellow/clear Leuk Neg Nitrite Neg Urobili 3.2 Protein 2+ pH 5.5 Blood Neg Sp. Gr. 1.005 Ketone Neg Bili Neg Gluc Neg Rapid Strep- Inhouse (Not ye t reviewed by provider) Interpretation:neg Performing Lab: Notes/Report: neg strep test neg Glucose (In-House) (Not yet reviewed by provider) Interpretation:180 Performing Lab: Notes/Report: 180 blood glucose 180 74 - 106 mg/dL CBC Venipuncture (in house) (Not yet reviewed by provider) Interpretation: Performing Lab: Notes/Report: wbc 5.1 3.5 - 10 lymph 25.5 15 - 50 mid 7.0 2 - 15 gran 67.5 35 - 80 rbc 5.57 3.5 - 5.5 hgb 15.4 11.5 - 16.5 hct 45.8 35 - 55 mcv 82.3 75 - 100 mch 27.7 25 - 35 mchc 33.7 31 - 38 platlet 178 100 - 400 Glycohemoglobin A1c (in hous e) (Not yet reviewed by provider) Interpretation:7.4% Performing Lab: Notes/Report: 7.4% glycohemoglobin 7.4% 5 - 6.5 % P-Vitamin D 25-Hydroxy Reviewed date:09/06/2024 09:59:16 AM Interpretation: Performing Lab: Notes/Report: P-Microalbumin/Creatinine, R andom Urine Sample Reviewed date:09/10/2024 11:05:33 AM Interpretation:see 09/09/2024 Performing Lab: Notes/Report: see 09/09/2024 P-TSH reflex to FT4 Reviewed date:09/06/2024 09:59:03 AM Interpretation: Performing Lab: Notes/Report: P-PSA Reviewed date:09/06/2024 09:58:51 AM Interpretation: Performing Lab: Notes/Report: P-Lipid Panel Reviewed date:09/06/2024 09:58:40 AM Interpretation: Performing Lab: Notes/Report: P-Hemoglobin A1C Reviewed date:09/06/2024 09:59:26 AM Interpretation: Performing Lab: Notes/Report: P-Comprehensive Metabolic Pa raven (CMP) Reviewed date:09/06/2024 09:58:27 AM Interpretation: Performing Lab: Notes/Report: P-Vitamin D 25-Hydroxy Reviewed date:09/06/2024 09:17:22 AM Interpretation: Normal Performing Lab: Notes/Report: Test performed by [employer] [address] [place] [address] , [address], [place] [address] Billy Leal MD, Kennel Supervisor CLIA: [id number] Vitamin D 25-Hydroxy 63.2 30.0-100.0 ng/mL Interpretation of Vitamin D 25 OH: < 20 ng/mL - Deficiency 20 - 29 ng/mL - Insufficiency 30 - 100 ng/mL - Sufficiency > 100 ng/mL - Super-therapeutic- toxicity may occur above this level. Clinical correlation required. P-TSH reflex to FT4 Reviewed date:09/06/2024 09:17:22 AM Interpretation: Normal Performing Lab: Notes/Report: Test performed by [employer] [address] [place] [address] , [address], [place] [address] Billy Leal MD, Kennel Supervisor CLIA: [id number] TSH reflex to FT4 2.99 0.43-5.25 mU/L P-PSA Reviewed date:09/06/2024 09:17:22 AM Interpretation: Normal Performing Lab: Notes/Report: Test performed by [facility] [address] , [address], [place] [address] Billy Leal MD, Kennel Supervisor CLIA: [id number] PSA 0.74 <4.00 ng/mL Please note this is an ultrasensitive PSA assay with a lower limit of detection of 0.014 ng/mL. This test is performed by the [employer] ECLIA methodology. Values obtained with different assay methods or kits cannot be directly compared. P-Lipid Panel Reviewed date:09/06/2024 09:17:22 AM Interpretation:trigs 219, hdl 28 Performing Lab: Notes/Report: Test performed by [employer] [address] [place] [address] , [address], [place] [address] Billy Leal MD, Kennel Supervisor CLIA: [id number] Cholesterol 128 <200 mg/dL Triglycerides 219 <150 [...] Results: 56 Units: mg/dL % Change: 0% P-Comprehensive Metabolic Pa raven (CMP) Reviewed date:09/06/2024 09:17:22 AM Interpretation:gluc 248, alk phos 134, ast 52 Performing Lab: Notes/Report: Test performed by [employer] [facility] , [address], [place] [address] Billy Leal MD, Kennel Supervisor CLIA: [id number] Sodium 137 135-145 mmol/L Potassium 4.6 3.5-5.3 [...] 0.7 <0.2-1.2 mg/dL A/G Ratio 1.6 1.1-2.5 Glycohemoglobin A1c (in hous e) Reviewed date:09/06/2024 09:17:22 AM Interpretation:8.5 Performing Lab: Notes/Report: 8.5 glycohemoglobin 8.5% 5 - 6.5 % CBC Fingerstick (in house) Reviewed date:08/12/2024 11:17:27 AM Interpretation: Performing Lab: Notes/Report: wbc 8.4 3.5 - 10 lym 22.8% 15 - 50 mid 7.0% 2 - 15 gran 70.2% 35 - 80 rbc 5.05 3.5 - 5.5 hgb 14.3 11.5 - 16.5 hct 42.6 35 - 55 mcv 84.3 75 - 100 mch 28.4 25 - 35 mchc 33.6 31 - 38 plat 147 100 - 400 Glycohemoglobin A1c (in hous e) Reviewed date:12/08/2024 10:13:32 AM Interpretation: Performing Lab: Notes/Report: glycohemoglobin 7.5% 5 - 6.5 % Glucose (In-House) Reviewed date:12/08/2024 10:13:05 AM Interpretation: Performing Lab: Notes/Report: blood glucose 190 74 - 106 mg/dL Reason For Referral No Information Medications Medication SIG (Take, Route, Frequency, Duration) Notes Start Date End Date Status Jardiance 25 MG 1 tablet Orally Once a day; Duration: 90 days 06/10/2025 Active Rosuvastatin Calcium 20 MG TAKE 1 TABLET BY MOUTH DAILY Orally Once a day; Duration: 90 days Active Albuterol Sulfate HFA 108 (90 Base) MCG/ACT 1 or 2 puff as needed Inhalation every 4 hrs 08/12/2024 Active Vitamin D3 1.25 MG (01972 UT) 1 capsule Orally once a week; Duration: 84 days Active Cephalexin 500 MG 1 capsule Orally twi ce a day; Duration: 7 days 06/10/2025 Active Immunizations Vaccine Route Administration Date Status Comme nts Fluzone Quad (6months&older) IM Intramuscular 06/27/2023 Administered Social History Tobacco Use: Social History Observation Description Date Details (start date - stop date) Current Smoker NA - NA CURRENT TOBACCO USE: Question Answer Notes Are you a: current every day smoker 2 PPD Problems Problem Type SNOMED Code ICD Code Onset Dates Problem Status W/U Status Risk Notes Problem Vitamin D deficiency (98231646) Vitamin D deficiency (E55.9) Active confirmed Problem Hypertriglyceridemia (087515222) Hypertriglyceridemia (E78.1) Active confirmed Problem Mixed hyperlipidemia (411201004) Mixed hyperlipidemia (E78.2) Active confirmed Problem Tobacco user (971355873) Cigarette nicotine dependence without complication (F17.210) Active confirmed Problem Type II diabetes mellitus without complication (494893088) Type 2 diabetes mellitus without complication, without long-term current use of insulin (E11.9) Active confirmed Problem Obesity (124958614) Non morbid o besity (E66.9) Active confirmed Vital Signs Heart Rate 90 /min 06/10/2025 Blood pressure diastolic 78 mm Hg 06/10/2025 Height 67 in 06/10/2025 Blood pressure systolic 122 mm Hg 06/10/2025 Weight 208 lbs 06/10/2025 BMI 32.57 kg/m2 06/10/2025 Encounters Encounter Location Date Provider Diagnosis [address] [id number] 08/12/2024 Jacob Harleigh Acute URI J06.9 and SOB (shortness of breath) R06.[address] [id number] 09/03/2024 Jacob Harleigh Type 2 diabetes tavo itus without complication, without long-term current use of insulin E11.9 ; Mixed hyperlipidemia E78.2 ; Hypertriglyceridemia E78.1 ; Vitamin D deficiency E55.9 and Prostate cancer screening Z12.[address] [id number] 09/09/2024 Jacob Harleigh Type 2 diabetes tavo itus without complication, without long-term current use of insulin E11.9 ; Personal history of nicotine dependence Z87.891 and [facility]12.2 [facility] [address] RADHA Barnard [id number] 12/08/2024 Jacob Harleigh Type 2 diabetes tavo itus without complication, without long-term current use of insulin E11.9 [facility] [address] RADHA Barnard [id number] 06/10/2025 Jacob Harleigh Sore throat J02.9 ; Type 2 diabetes mellitus without complication, without long-term current use of insulin E11.9 ; Generalized abdominal pain R10.84 and Incisional hernia, without obstruction or gangrene K43.2 [facility] [address] RADHA Barnard [id number] 08/30/2024 Jacob Harleigh Type 2 diabetes tavo itus without complication, without long-term current use of insulin E11.9 ; Mixed hyperlipidemia E78.2 ; Hypertriglyceridemia E78.1 ; Vitamin D deficiency E55.9 and Prostate cancer screening Z12.5 [facility] [address] [place] [address] RADHA Barnard [id number] 09/06/2024 [facility] [address] [place] [address] RADHA Barnard [id number] 09/10/2024 Jacobfreddy GuerraHarleigh Assessments Encounter Date Diagnosis (ICD Code) Assessment Notes Treatment Notes Treatment Clinical Notes Section Notes 08/12/2024 SOB (shortness of breath) (ICD-10 - R06.02) 08/12/2024 Acute URI (ICD-10 - J06.9) 08/30/2024 Mixed hyperlipidemia (ICD-10 - E78.2) 08/30/2024 Type 2 diabetes tavo itus without complication, without long-term current use of insulin (ICD-10 - E11.9) 09/03/2024 Mixed hyperlipidemia (ICD-10 - E78.2) 09/03/2024 Type 2 diabetes tavo itus without complication, without long-term current use of insulin (ICD-10 - E11.9) 09/09/2024 Personal history of nicotine dependence (ICD-10 - Z87.891) 09/09/2024 Type 2 diabetes tavo itus without complication, without long-term current use of insulin (ICD-10 - E11.9) A1c is 8.5%, Not at goal today. Discussed dietary changes 12/08/2024 Type 2 diabetes tavo itus without complication, without long-term current use of insulin (ICD-10 - E11.9) 06/10/2025 Sore throat (ICD-10 - J02.9) 06/10/2025 Type 2 diabetes tavo itus without complication, without long-term current use of insulin (ICD-10 - E11.9) 06/10/2025 Generalized abdomina l pain (ICD-10 - R10.84) 08/30/2024 Hypertriglyceridemia (ICD-10 - E78.1) 09/03/2024 Hypertriglyceridemia (ICD-10 - E78.1) 09/09/2024 Screening for lung cancer (ICD-10 - Z12.2) 08/30/2024 Vitamin D deficiency (ICD-10 - E55.9) 09/03/2024 Vitamin D deficiency (ICD-10 - E55.9) 06/10/2025 Incisional hernia, without obstruction or gangrene (ICD-10 - K43.2) 09/03/2024 Prostate cancer screening (ICD-10 - Z12.5) 08/30/2024 Prostate cancer screening (ICD-10 - Z12.5) Plan Of Treatment Pending Test Test Name Order Date Urinalysis - Inhouse 06/10/2025 X ray : Abdomen-KUB with upright films 0 06/10/2025 Rapid Strep- Inhouse 06/10/2025 Glucose (In-House) 06/10/2025 CBC Venipuncture (in house) 06/10/2025 Glycohemoglobin A1c (in house) P-Comprehensive Metabolic Panel (CMP) Next Appt Details Provider Name:Jacob Gaspar ry, 09/09/2025 10:15:00 AM, [address], [address], [place], [place], [id number], Insurance Providers Payer Name Payer Address Payer Phone Subscriber Number Group Number Insured Name Patient Relationship to Insured Coverage Start Date Coverage End Date [employer] [address] [place] [address] [phone] [id number] ADRIENNE BLAKE Self - patient is the insured Medical (General) History Medical History History ICD Code 60 pack year smoking history as of 2022 Type 2 Diabetes Hyperlipidemia Vitamin D Deficiency diverticulosis colostomy, s/p excision of benign coloni c mass (diverticular) in 2022 Sepsis due to E. coli, treated at Sep t. 2022 Surgical History Surgery Date(Month/Year) Cholecystectomy Knee Jaw Mass Removal from Colon- [facility] 05/01/2023 Colostomy reversal 08/2023 Hospitalization History Reason Date(Month/Year) Colon surgery- [facility], 04/2023
--- OUTSIDE RECORDS SUMMARY | 2025-06-10 11:28 | XMS_ITS | Encounter Summary ---
Author Organization Healthcare Address [address] [place] [place] [address] Care Team Providers Care Kettle Skimmer Name Role Phone Jacob Rendon MD Primary Care Provider + [phone] Reason for Visit * Reason Comments Med Refill Encounter Details Date Type Department Care Team (Late st Contact Info) Description 10/14/[address] [facility] General [facility] [address] [place] [address] Wallace Mack MD [address] [place] [address] Social History Tobacco Use Types Packs/Day Years [...] money to buy more. Never true 09/12/20 Within the past 12 months, t he [...] place to sleep or slept in a [facility] (including now)? No 09/12/2023 Utilities Answer Date [...] on file documented as of this encounter Plan of Treatment Not on file documented as of this encounter Visit Diagnoses Not on filedocumented in this encounter Additional Health Concerns Infection Onset Date Last Indicated Resolved Time ESBL Comment:Blood culture collected on [05/17/23 resulted E. coli an ESBL. 05/05/2023 05/17/2023 MDRO Comment:05/05/2023 12:30 MDRT Eschericia coli multidrug resistant 05/05/2023 05/10/2023 e. coli 05/17/2023 05/17/2023 Assessment Noted Time A fall risk assessment has been complete d for the patient 09/30/2023 3:51 PM EST A Body Mass Index follow-up plan has been documented for the patient 09/30/2023 4:11 PM EST documented as of this encounter Care Teams Kettle Skimmer Relationship Specialty Start Date End Date Jacob Rendon MD [address] [place] [address] PCP - General 04/29/23 documented as of this encounter
--- NOTE | 2025-06-10 11:29 | XR_ITS ---
FINAL REPORT CLINICAL HISTORY: UPRIGHT FILMS......GENERALIZED ABD PAIN COMPARISON: None FINDINGS: A single supine view the abdomen was obtained. The bowel gas pattern is nonspecific but nonobstructive. There are no renal stones. Calcification in the right pelvis may be a phlebolith, distal ureteral stone not excluded. Osseous structures are within normal limits. IMPRESSION: Nonspecific but nonobstructive bowel gas pattern. Right pelvic calcification, favor phlebolith but nonobstructing stone not excluded. Reviewed, Interpreted and Dictated by Greta Oliver MD Transcribed by Olga Dia Authenticated and [facility]
--- OUTSIDE RECORDS SUMMARY | 2025-06-10 11:29 | XMS_ITS | Encounter Summary ---
Author Organization Healthcare Address [address] [place] [address] Care Team Providers Care Collection Systems Worker Name Role Phone Jacob Rendon MD Primary Care Provider + [phone] Encounter Details Date Type Department Care Team ([facility] st Contact Info) Description 03/18/2023 Orders Only External Location [address] [place] [address] Provider, External Social History Tobacco Use Types Packs/Day Years [...] Procedure Name Priority Date/Time Associated Diagnosis Comments CT OUTSIDE IMAGES 03/18/2023 9:28 AM EDT documented in this encounter Results * CT OUTSIDE IMAGES (03/18/2023 9:28 AM EDT) Anatomical Region Laterality Modality Computed Tomogra phy 03/18/2023 9:28 AM EDT External Provider IMG CT PROCEDURES Final Result documented in this encounter Visit Diagnoses Not on filedocumented in this encounter Additional Health Concerns Infection Onset Date Last Indicated Resolved Time ESBL Comment:Blood culture collected on [05/17/23 resulted E. coli an ESBL. 05/05/2023 05/17/2023 MDRO Comment:05/05/2023 12:30 MDRT Eschericia coli multidrug resistant 05/05/2023 05/10/2023 e. coli 05/17/2023 05/17/2023 documented as of this encounter Care Teams Collection Systems Worker Relationship Specialty Start Date End Date Jacob Rendon MD [address] [facility] [address] [address] PCP - General 04/29/23 documented as of this encounter
--- OUTSIDE RECORDS SUMMARY | 2025-06-10 11:29 | XMS_ITS | Patient Health Record ---
Author Organization [facility] Address [address] [place] [address] Care Team Providers Care Customer Logistics Manager Name Role Phone [facility] Unavailable [phone] Reason For Referral No Information Social History Tobacco Use: Social History Observation Description Date Details (start date - stop date) Former Smoker NA - NA Tobacco Control (Standard) Question Answer Notes Tobacco use: Former smoker Vital Signs Height 67 in 11/09/2024 Patient Reported Normal Blood Pressure Patient Reported Normal Temperature Weight 205 lbs 11/09/2024 Patient Reported Normal Blood Pressure Patient Reported Normal Temperature BMI 32.11 kg/m2 11/09/2024 Patient Reported Normal Blood Pressure Patient Reported Normal Temperature Encounters Encounter Location Date Provider Diagnosis [facility] [address] [place] [address] 11/09/2024 [facility] URGENT CARE Encounter for general adult medical examination without abnormal findings Z00.00 Assessments Encounter Date Diagnosis (ICD Code) Assessment Notes Treatment Notes Treatment Clinical Notes Section Notes 11/09/2024 Encounter for general adult medical examination without abnormal findings (ICD-10 - Z00.00) AI TRIAGE SUGGESTED ASSESSMENTS: J30.9 - Allergic rhinitis, unspecified J40 - Bronchitis, not specified as acute or chronic - -- --- AI TRIAGE CLINICAL REASONING: Based on the patient's history and symptoms, the differential diagnosis includes acute viral upper respiratory infection, allergic rhinitis, acute bronchitis, acute sinusitis, and influenza. The patient's previous use of antibiotics and steroids for similar symptoms suggests a possible recurrent upper respiratory condition. Further evaluation may be needed to confirm the specific diagnosis and guide appropriate treatment. Plan Of Treatment No Information Insurance Providers Payer Name Payer Address Payer Phone Subscriber Number Group Number Insured Name Patient Relationship to Insured Coverage Start Date Coverage End Date [facility] [address] [place] [address] [id number] Pedro Luis Jang Self - patient is the insured
== END 2025-06-10 23:59 | disposition home or self-care (01) ==
LOC: RAD 11:26
PROVIDERS: PCP Family Medicine; Visit Provider Family Medicine
DX: R10.84 Generalized abdominal pain (principal); K43.2 Incisional hernia without obstruction or gangrene; R93.5 Abnormal findings on diagnostic imaging of other abdominal regions, including retroperitoneum
CPT/HCPCS: 74018